=== PATIENT | female | born 1995 | race Caucasian/White ===

== ENCOUNTER → 2016-11-04 | Outpatient (CLI) | payer OTHER ==
[~2016-11-04] MED LIST: ACET118E PO; BENZ100C18 PO; BPR150TCR; CETI10TA17 PO; NF-FLON16G; PRD20T PO; SULF1TAB38 PO
--- OUTSIDE RECORDS SUMMARY | 2016-11-04 11:17 | XMS REPORT | Continuity of Care Document ---
Author Author [facility] Organization [facility] Address Unknown Phone Unavailable Care Team Providers Care Director [employer] Name Role Phone GORDY ABDALLA DO PCP Insurance Providers Payer Name Policy Number Subscriber Name Relationship Unknown JeetAbbiLauro A 18 Self / Same As Patient Advance Directives Directive Response Recorded Date/Time Advance Directives No 10/03/16 5:05pm Organ Donor No 10/03/16 5:05pm Resuscitation Status Full Code 10/03/16 5:05pm Chief Complaint and Reason for Visit Chief Complaint Oral/Throat Problems Reason for Visit Acute viral pharyngitis Problems Active Problems Medical Problem Onset Date Status Acute viral pharyngitis Unknown Acute Medications Current Home Medications Medication Dose Units Route Directions Days/Qty Instructions Start Date Trimethoprim/Sulfamethoxazole 1 Ea 1 Ea Oral Twice A Day 3 Days Prednisone 20 Mg 40 Mg Oral Daily 10 10/03/16 Past Home Medications Medication Directions Ordered Status Bupropion Hcl 150 Mg Tablet, 02/25/09 Discontinued Cetirizine Hcl (Zyrtec) 10 Mg Tablet, 10 Mg Oral Daily 06/26/10 Discontinued Benzonatate 100 Mg Capsule, 200 Mg Oral Three Times A Day 06/26/10 Discontinued Fluticasone Propionate 50 Mcg/16 G [place], 50 Mcg Nasal 06/26/10 Discontinued Acetaminophen With Codeine 120 Ml Elixir, 10 Ml Oral Q4hr Prn 06/26/10 Discontinued Social History Social History Problem Response Recorded Date/Time Alcohol Use Denies Use 04/25/2013 6:21pm Recreational Drug Use Y POT 04/25/2013 6:21pm Recent Foreign Travel No 10/03/2016 5:05pm Recent Infectious Disease Exposure No 10/03/2016 5:05pm Hospitalization with Isolation Denies 10/03/2016 5:05pm Smoking Status Current Everyday Smoker 10/03/2016 5:05pm Recent Hopitalizations No 10/03/2016 5:05pm Hospitalization with Isolation Denies 10/03/2016 5:05pm Query Response Start Date Stop Date Smoking Status Current Everyday Smoker Hospital Discharge Instructions No hospital discharge instructions. Plan of Care Discharge Date 10/03/16 6:10pm Disposition 01 HOME, SELF-CARE Condition at Discharge Improved Instructions/Education Provided Viral Pharyngitis (DC) Prescriptions See Medication Section Referrals GORDY ABDALLA DO - Primary Care Physician Additional Instructions/Education All discharge instructions reviewed with patient and/or family. Voiced understanding. Medications as instructed. Tylenol Extra Strength [id number]-[id number] as directed for pain or fever. Ibuprofen 800 mg by mouth every 8 hours as needed for pain or fever. Push fluids. Cool humidifier if needed. Moit-gss-lepchzz throat lozenges and sprays as needed for pain. Warm salt water gargles as needed. Follow up with family practitioner if no improvement in symptoms. Return to the emergency department for worsened symptoms or any other concerns. Functional Status No functional status results. Allergies, Adverse Reactions, Alerts No known allergies. Immunizations No immunization records. Vital Signs Acute Vital Signs Vital Response Date/Time Temperature (Fahrenheit) 99.9 degrees F (97.6 - 99.5) 10/03/2016 5:05pm Temperature (Calculated Celsius) 37.30698 degrees C (36.4 - 37.5) 10/03/2016 5:05pm Temperature Source Temporal 10/03/2016 5:05pm Pulse Rate (adult) 95 bpm (60 - 90) 10/03/2016 5:05pm Respiratory Rate 20 bpm (12 - 24) 10/03/2016 5:05pm O2 Sat by Pulse Oximetry 98 % (88 - 100) 10/03/2016 5:05pm Blood Pressure 138/76 mm Hg 10/03/2016 5:05pm Blood Pressure Mean 96 mm Hg 10/03/2016 5:05pm Pain Numeric Pain Scale 7 10/03/2016 5:05pm Height (Feet) 5 feet 10/03/2016 5:05pm Height (Inches) 4 inches 10/03/2016 5:05pm Height (Calculated Centimeters) 162.285753 cm 10/03/2016 5:05pm Weight (Pounds) 175 pounds 10/03/2016 5:05pm Weight (Calculated Grams) 99665.710 gm 10/03/2016 5:05pm Weight (Calculated Kilograms) 79.982250 kilograms 10/03/2016 5:05pm Calculated BMI 25.33 10/03/2016 5:05pm Capillary Refill Capillary Refill Less Than 3 Seconds 10/03/2016 5:05pm Results No known relevant diagnostic tests, laboratory data and/or discharge summary. Procedures No known history of procedures. Encounters Encounter Location Arrival/Admit Date Discharge/Depart Date Attending Provider Departed Emergency Room [facility] 10/03/16 4:53pm 10/03 6:10pm [facility] Recent Diagnosis
--- NOTE | 2016-11-04 12:27 | Diagnostic Imaging Report ---
PROCEDURE: US PELVIC (NON OB) TECHNIQUE: Multiple real-time grayscale images were obtained over the pelvis in various projections transabdominally. IMPRESSION: Amenorrhea The uterus measures 7.0 x 3.5 x 2.6 cm. Endometrial stripe is 4 mm. Ovaries appear normal. There is no intraperitoneal free air or free fluid. IMPRESSION: Negative pelvic sonogram. Dictated by: Dictated on workstation # [id number]
== END ==
LOC: RAD 11:14
PROVIDERS: ATTEND Family Medicine
DX: N91.2 Amenorrhea, unspecified (principal)
CPT/HCPCS: 76856

== ENCOUNTER 2017-02-26 22:37 | Emergency (ER) | payer SELFPAY ==
[~2017-02-26] VITALS: Ht 162.6 cm; Wt 86.2 kg
[2017-02-26] MEDS ORDERED: NS IV 1000 ML 1,000 ML IV ONE (23:17)
[2017-02-26] MEDS ORDERED: fentaNYL INJECTION 100 MCG/2 ML AMP IVP STA (23:17)
--- NOTE | 2017-02-26 23:20 | ED Abdominal Pain ---
General Chief Complaint: Abdominal/GI Problems Stated Complaint: ABD PAIN Source of Information: Patient Exam Limitations: No Limitations History of Present Illness Time Seen By Provider: 23:05 Initial Comments Here with report of abdominal pain to the left side that radiates to her back. She states it's lower and then higher and then into her back. She has had intermittently over the past couple of months. 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 She is supposed to take ibuprofen and did take 3 ibuprofen 20 minutes prior to arrival. This has not helped.. Denies nausea, vomiting, diarrhea, blood in her urine or stools. Denies vaginal discharge. Last menstrual period was at the beginning of the month. Timing/Duration: 4-6 Hours Severity/Quality: Moderate, Aching Location: LUQ, LLQ Radiation: Back Activities at Onset: None Modifying Factors: Improves With Resting Associated Symptoms: No Back Pain, No Chest Pain, No Fever/Chills, No Nausea/ Vomiting, No Swelling/Mass in Abdomen, No Weakness Allergies and Home Medications Allergies Coded Allergies: No Known Drug Allergies (Unverified , 02/25/09) Home Medications Prednisone 20 Mg Tab, 40 MG PO DAILY, #10 Ref 0 Prescribed by: RICHARD LANE on 10/03/161800 Trimethoprim/Sulfamethoxazole 1 Ea Tablet, 1 EA PO BID for 3 Days Prescribed by: MARY KATE BETANCOURT on 04/25/132020 Review of Systems Constitutional: see HPI, No chills, No fever EENTM: No Symptoms Reported Respiratory: No Symptoms Reported Cardiovascular: No Symptoms Reported Gastrointestinal: See HPI, Abdominal Pain, Denies Diarrhea, Denies Nausea, Denies Rectal Bleeding, Denies Vomiting Genitourinary: Denies Burning, Denies Discharge, Flank Pain, Denies Hematuria Musculoskeletal: no symptoms reported Skin: no symptoms reported Psychiatric/Neurological: No Symptoms Reported All Other Systems Reviewed Negative Unless Noted: Yes Past Bwkjvom-Gkhddw-Cymjvz Hx Patient Social History Alcohol Use: Occasionally Uses Recreational Drug Use: No Smoking Status: Current Everyday Smoker Type Used: Cigarettes Recent Foreign Travel: No Contact w/Someone Who Travel: No Recent Hopitalizations: No Seasonal Allergies Seasonal Allergies: Yes Surgeries HX Surgeries: No Respiratory Hx Respiratory Disorders: No Cardiovascular Hx Cardiac Disorders: No Neurological Hx Neurological Disorders: No Reproductive System Female Reproductive Disorders: Polycystic Ovarian Dis Genitourinary Hx Genitourinary Disorders: No Gastrointestinal Hx Gastrointestinal Disorders: No Musculoskeletal Hx Musculoskeletal Disorders: No Endocrine Hx Endocrine Disorders: No HEENT HX ENT Disorders: No Cancer Hx Cancer: No Psychosocial Hx Psychiatric Problems: No Integumentary HX Skin/Integumentary Disorder: No Blood Transfusions Hx Blood Disorders: No Reviewed Nursing Assessment Reviewed/Agree w Nursing PMH: Yes Family Medical History Significant Family History: No Pertinent Family Hx Physical Exam Vital Signs VS - Last 72 Hours, by Label 02/26/17 23:04 B/P (MAP) 135/75 Pulse Ox 98 O2 Delivery Room Air Capillary Refill : General Appearance: WD/WN, no apparent distress HEENT: PERRL/EOMI, pharynx normal Neck: full range of motion, supple Respiratory: lungs clear, normal breath sounds Cardiovascular: regular rate, rhythm, no murmur Gastrointestinal: soft, No guarding, No rebound, tenderness (left lower and lateral abdomen) Extremities: non-tender, normal inspection Back: normal inspection, no CVA tenderness, no vertebral tenderness Neurologic/Psychiatric: alert, oriented x 3 Skin: normal color, warm/dry Progress/Results/Core Measures Results/Orders Lab Results Laboratory Tests Test 02/26/17 23:20 02/26/17 23:26 Range/Units Urine Color YELLOW Urine Clarity CLOUDY H Urine pH 6 5-9 Urine Specific Mcdaniel 1.025 H 1.016-1.022 Urine Protein 2+ H NEGATIVE Urine Glucose (UA) 2+ H NEGATIVE Urine Ketones NEGATIVE NEGATIVE Urine Nitrite NEGATIVE NEGATIVE Urine Bilirubin NEGATIVE NEGATIVE Urine Urobilinogen NORMAL NORMAL MG/DL Urine Leukocyte Esterase 1+ H NEGATIVE Urine RBC (Auto) 5+ H NEGATIVE Urine RBC TNTC H /HPF Urine WBC 2-5 /HPF Urine Squamous Epithelial Cells 10-25 H /HPF Urine Crystals NONE /LPF Urine Bacteria MODERATE H /HPF Urine Casts NONE /LPF Urine Mucus NEGATIVE /LPF Urine Culture Indicated YES White Blood Count 11.9 H 4.3-11.0 10^3/uL Red Blood Count 4.86 4.35-5.85 10^6/uL Hemoglobin 14.1 11.5-16.0 G/DL Hematocrit 43 35-52 % Mean Corpuscular Volume 87 80-99 FL Mean Corpuscular Hemoglobin 29 25-34 PG Mean Corpuscular Hemoglobin Concent 33 32-36 G/DL Red Cell Distribution Width 12.5 10.0-14.5 % Platelet Count 334 130-400 10^3/uL Mean Platelet Volume 9.7 7.4-10.4 FL Neutrophils (%) (Auto) 76 H 42-75 % Lymphocytes (%) (Auto) 15 12-44 % Monocytes (%) (Auto) 7 0-12 % Eosinophils (%) (Auto) 2 0-10 % Basophils (%) (Auto) 0 0-10 % Neutrophils # (Auto) 9.0 H 1.8-7.8 X 10^3 Lymphocytes # (Auto) 1.7 1.0-4.0 X 10^3 Monocytes # (Auto) 0.9 0.0-1.0 X 10^3 Eosinophils # (Auto) 0.2 0.0-0.3 10^3/uL Basophils # (Auto) 0.0 0.0-0.1 10^3/uL Sodium Level 140 135-145 MMOL/L Potassium Level 4.2 3.6-5.0 MMOL/L Chloride Level 106 98-107 MMOL/L Carbon Dioxide Level 22 21-32 MMOL/L Anion Gap 12 5-14 MMOL/L Blood Urea Nitrogen 15 7-18 MG/DL Creatinine 0.95 0.60-1.30 MG/DL Estimat Glomerular Filtration Rate > 60 BUN/Creatinine Ratio 16 Glucose Level 131 H 70-105 MG/DL Calcium Level 9.8 8.5-10.1 MG/DL Total Bilirubin 0.2 0.1-1.0 MG/DL Aspartate Amino Transf (AST/SGOT) 20 5-34 U/L Alanine Aminotransferase (ALT/SGPT) 19 0-55 U/L Alkaline Phosphatase 75 40-136 U/L Total Protein 7.1 6.4-8.2 G/DL Albumin 4.1 3.2-4.5 G/DL Amylase Level 49 25-125 U/L Lipase 21 8-78 U/L My Orders Orders - MARY KATE BETANCOURT MD Urine Bedside (02/26/17 23:17) Amylase (02/26/17 23:17) Cbc With Automated Diff (02/26/17 23:17) Comprehensive Metabolic Panel (02/26/17 23:17) Lipase (02/26/17 23:17) Ua Culture If Indicated (02/26/17 23:17) Saline Lock/Iv-Start (02/26/17 23:17) Ns Iv 1000 Ml (Sodium Chloride 0.9%) (02/26/17 23:17) Fentanyl Injection (Sublimaze Injection (02/26/17 23:17) Urine Culture (02/26/17 23:20) Ct Abd/Pelvis Wo(Kidney Stone) (02/27/17 00:01) Levofloxacin Tablet (Levaquin Tablet) (02/27/17 01:33) Rx-Hydrocodone/Apap 5-325 Mg (Rx-Vicodin (02/27/17 01:45) Medications Given in ED Current Medications Medications Dose Ordered Sig/Kimberly Route Start Time Stop Time Status Last Admin Dose Admin Sodium Chloride 1,000 ml @ 0 mls/hr Q0M ONCE IV 02/26/17 23:17 02/26/17 23:19 DC 02/26/17 23:35 0 MLS/HR Vital Signs/I&O Vital Sign - Last 12Hours 02/26/17 23:04 B/P (MAP) 135/75 Pulse Ox 98 O2 Delivery Room Air Progress Note : Progress Note Seen and evaluated. IV, labs, UA, UCG. Normal saline 1 L bolus. Fentanyl 50 g IV. Monitor patient. Pain control. Monitor blood noted in urine. CT abdomen and pelvis kidney stone protocol ordered. 0130: CT shows 6 mm stone at the left distal ureter with mild obstructive changes. Levaquin 500 mg by mouth. Hydrocodone go pack. Pain resolved still. Discharged home with return precautions. Patient verbalize understanding instructions and agreement with plan. Diagnostic Imaging Diagonstic Imaging: Xray Plain Films/CT/US/NM/MRI: abdomen, pelvis Comments 6 mm stone in left distal ureter with mild obstructive changes. Unremarkable appendix. Reviewed: Reviewed [facility] Study, Reviewed by Me Departure Impression Impression: Primary Impression: Kidney stone Additional Impression: Urinary tract infection Qualified Codes: N30.01 - Acute cystitis with hematuria Disposition: HOME, SELF-CARE Condition: Improved Departure-Patient Inst. Decision time for Depature: 01:40 Referrals: CIRA BRANDT DO (PCP) Primary Care Physician JOSE MIKE MD (Family) Primary Care Physician MARIA FERNANDA WHITE MD Patient Instructions: Kidney Stones (DC), Urinary Tract Infection, Adult (DC) Add. Discharge Instructions: All discharge instructions reviewed with patient and/or family. Voiced understanding. Drink plenty of fluids. Take medications as directed. You may take ibuprofen 800 mg every 8 hours as needed for pain as well. Strain urine each time he go to the bathroom. Follow up with your doctor on Wednesday for recheck and further evaluation. Follow-up with urologist in a few days for recheck if not improved. Return for worse pain, fever, vomiting, weakness, difficulty with urination or other concerns as needed. Scripts Hydrocodone/Acetaminophen (Hydrocodon-Acetaminoph 7.5-325) 1 Each Tablet 1 EACH PO Q6H Y for PAIN-MILD TO MODERATE, #14 TAB 0 Refills Prov: MARY KATE BETANCOURT MD 02/27/17 Ciprofloxacin HCl (Ciprofloxacin HCl) 500 Mg Tablet 500 MG PO BID, #14 TAB Prov: MARY KATE BETANCOURT MD 02/27/17 MARY KATE BETANCOURT MD February 26, 2017 23:20
[2017-02-26 23:34] LABS: BASOPHILS % (AUTO) 0 % (0-10); EOSINOPHILS # (AUTO) 0.2 10^3/uL (0.0-0.3); EOSINOPHILS % (AUTO) 2 % (0-10); LYMPHOCYTES # (AUTO) 1.7 X 10^3 (1.0-4.0); LYMPHOCYTES % (AUTO) 15 % (12-44); MEAN CORPUSCULAR HEMOGLOBIN 29 PG (25-34); MEAN CORPUSCULAR HGB CONC 33 G/DL (32-36); MEAN CORPUSCULAR VOLUME 87 FL (80-99); MEAN PLATELET VOLUME 9.7 FL (7.4-10.4); MONOCYTES # (AUTO) 0.9 X 10^3 (0.0-1.0); MONOCYTES % (AUTO) 7 % (0-12); NEUTROPHILS % (AUTO) 76 % (42-75); PLATELET COUNT 334 10^3/uL (130-400); RED BLOOD COUNT 4.86 10^6/uL (4.35-5.85); RED CELL DISTRIBUTION WIDTH 12.5 % (10.0-14.5); WHITE BLOOD COUNT 11.9 10^3/uL (4.3-11.0)
[2017-02-26 23:34] LABS: BILIRUBIN,URINE NEGATIVE (NEGATIVE); KETONES,URINE NEGATIVE (NEGATIVE); LEUKOCYTE ESTERASE ,URINE 1+ (NEGATIVE); NITRITE,URINE NEGATIVE (NEGATIVE); PH,URINE 6 (5-9); PROTEIN,URINE 2+ (NEGATIVE); UROBILINOGEN,URINE NORMAL (NORMAL)
[2017-02-26 23:55] LABS: ALANINE AMINOTRANSFERASE 19 U/L (0-55); ALBUMIN 4.1 G/DL (3.2-4.5); AMYLASE 49 U/L (25-125); ANION GAP 12 MMOL/L (5-14); ASPARTATE AMINO TRANSFERASE 20 U/L (5-34); BILIRUBIN,TOTAL 0.2 MG/DL (0.1-1.0); BLOOD UREA NITROGEN 15 MG/DL (7-18); BUN/CREATININE RATIO 16; CALCIUM 9.8 MG/DL (8.5-10.1); CARBON DIOXIDE 22 MMOL/L (21-32); CHLORIDE 106 MMOL/L (98-107); CREATININE SERUM 0.95 MG/DL (0.60-1.30); GFR ESTIMATED > 60; GLUCOSE 131 MG/DL (70-105); LIPASE 21 U/L (8-78); POTASSIUM 4.2 MMOL/L (3.6-5.0); SODIUM 140 MMOL/L (135-145); TOTAL PROTEIN 7.1 G/DL (6.4-8.2)
[2017-02-27] MEDS ORDERED: LEVOFLOXACIN 500 MG TAB (LEVAQUIN) PO STA (01:33)
[2017-02-27] MEDS ORDERED: CIPR500T4 PO (01:42)
[2017-02-27] MEDS ORDERED: HYDR-3816 PO (01:42)
[2017-02-27 01:43] VITALS: BP 129/70
[2017-02-27] MEDS ORDERED: RX-HYDROCODONE/APAP 5/325 MG #4 TAB PK PO PRN (01:45)
--- NOTE | 2017-02-27 07:16 | Diagnostic Imaging Report ---
PROCEDURE: CT urinary tract, rule out kidney stone. TECHNIQUE: Multiple contiguous axial images were obtained through the abdomen and pelvis without the use of intravenous contrast. INDICATION: Left flank pain COMPARISON: None FINDINGS: There is a 3 mm nodule in the anterior right lower lobe seen on series 2 image 6. Lung bases are otherwise clear. The liver, gallbladder, pancreas, spleen and adrenal glands appear unremarkable. There is a 5 mm stone in the distal left ureter just proximal to the ureterovesical junction with mild hydroureter as well as periureteric stranding. There is mild left hydronephrosis as well. The right kidney and ureter appear unremarkable. The appendix appears normal. The uterus and adnexa appear unremarkable. There is no ascites or adenopathy. The abdominal aorta appears normal in caliber. No osseous abnormality is suspected. IMPRESSION: 1. There is a 5 mm stone in the distal appear with mild obstructive change 2. No additional significant abnormality is demonstrated. Agree with [facility] interpretation Dictated by: Dictated on workstation # [id number]
== END 2017-02-27 01:56 | disposition home or self-care (01) ==
LOC: EDUNIT# 22:37 → ER 22:39
DX: N20.1 Calculus of ureter (principal); F17.210 Nicotine dependence, cigarettes, uncomplicated
CPT/HCPCS: 36415; 74176; 80053; 81000; 82150; 83690; 84703; 85025; 87088; 96361; 96374

== ENCOUNTER 2017-03-03 20:06 | Emergency (ER) | payer SELFPAY ==
[~2017-03-03] VITALS: Ht 162.6 cm; Wt 86.2 kg
[~2017-03-03 20:06] MED LIST changes: +CIPR500T4 PO; +HYDR-3816 PO
[2017-03-03] MEDS ORDERED: KETOROLAC 30 MG/ML VIAL IVP STA (20:49)
[2017-03-03] MEDS ORDERED: LACTATED RINGERS 1,000 ML IV ONE (20:49)
[2017-03-03 20:55] LABS: BASOPHILS % (AUTO) 0 % (0-10); EOSINOPHILS # (AUTO) 0.1 10^3/uL (0.0-0.3); EOSINOPHILS % (AUTO) 1 % (0-10); LYMPHOCYTES # (AUTO) 1.6 X 10^3 (1.0-4.0); LYMPHOCYTES % (AUTO) 14 % (12-44); MEAN CORPUSCULAR HEMOGLOBIN 30 PG (25-34); MEAN CORPUSCULAR HGB CONC 35 G/DL (32-36); MEAN CORPUSCULAR VOLUME 85 FL (80-99); MEAN PLATELET VOLUME 9.8 FL (7.4-10.4); MONOCYTES # (AUTO) 0.7 X 10^3 (0.0-1.0); MONOCYTES % (AUTO) 6 % (0-12); NEUTROPHILS # (AUTO) 9.5 X 10^3 (1.8-7.8); NEUTROPHILS % (AUTO) 79 % (42-75); PLATELET COUNT 387 10^3/uL (130-400); RED BLOOD COUNT 4.97 10^6/uL (4.35-5.85); RED CELL DISTRIBUTION WIDTH 12.3 % (10.0-14.5)
[2017-03-03] MEDS ORDERED: ONDANSETRON 4 MG/2 ML (SDV) Z0FRAN IVP ONE (21:00)
[2017-03-03 21:08] LABS: ALANINE AMINOTRANSFERASE 24 U/L (0-55); ALBUMIN 4.3 G/DL (3.2-4.5); AMYLASE 45 U/L (25-125); ANION GAP 12 MMOL/L (5-14); ASPARTATE AMINO TRANSFERASE 19 U/L (5-34); BILIRUBIN,TOTAL 0.5 MG/DL (0.1-1.0); BLOOD UREA NITROGEN 15 MG/DL (7-18); BUN/CREATININE RATIO 15; CALCIUM 9.6 MG/DL (8.5-10.1); CARBON DIOXIDE 18 MMOL/L (21-32); CHLORIDE 109 MMOL/L (98-107); CREATININE SERUM 0.98 MG/DL (0.60-1.30); GFR ESTIMATED > 60; GLUCOSE 108 MG/DL (70-105); LIPASE 11 U/L (8-78); POTASSIUM 3.9 MMOL/L (3.6-5.0); SODIUM 139 MMOL/L (135-145)
[2017-03-03 21:09] LABS: BILIRUBIN,URINE NEGATIVE (NEGATIVE); KETONES,URINE 2+ (NEGATIVE); LEUKOCYTE ESTERASE ,URINE 1+ (NEGATIVE); NITRITE,URINE NEGATIVE (NEGATIVE); PH,URINE 5 (5-9); PROTEIN,URINE 2+ (NEGATIVE); UROBILINOGEN,URINE 1 MG/DL (NORMAL)
[2017-03-03 21:22] LABS: SQUAMOUS EPITHELIAL CELL,UR 25-50 /HPF
--- NOTE | 2017-03-03 21:22 | Diagnostic Imaging Report ---
Indication: Abdominal pain for 5 days. Discussion: Two views of the abdomen were obtained, comparison with CT from 02/27/2017. A 4 mm distal left ureteral stone appears unchanged in position. No other pathologic calcification identified. No acute osseous abnormality. Normal bowel gas pattern. Impression: 1. A 4 mm distal left ureteral stone appears unchanged in position as compared to prior CT. Dictated by: Dictated on workstation # [id number]
[2017-03-03] MEDS ORDERED: RX-ONDANSETRON 4 MG ODT (ZOFRAN) PPK #4 PO STA (21:52)
[2017-03-03] MEDS ORDERED: AMPI500C9 PO (21:59)
[2017-03-03] MEDS ORDERED: TAMS0.4C98 PO (21:59)
[2017-03-03] MEDS ORDERED: ONDA4TAB8 PO (21:59)
[2017-03-03] MEDS ORDERED: KETO10TA PO (21:59)
--- NOTE | 2017-03-03 21:59 | ED GU-Female ---
General Chief Complaint: -Female Stated Complaint: KIDNEY STONE Nursing Triage Note: pt reports she was diagnosed with a 6mm kidney stone on Wednesday. She has been taking hydrocodone et antibiotic. pain worsened at about 1645 today. pt reports she vomited her hydrocodone. Nursing Sepsis Screen: No Definite Risk Source: patient, old records History of Present Illness Time seen by provider: 20:30 Initial Comments C/O SEVERE LEFT FLANK AND LLQ PAIN SINCE WAKING AT 0500 THIS AM PAIN IS CONSTANT NOTHING WORSENS OR IMPROVES PAIN PT HAS BEEN HAVING INTERMITTENT MILD PAIN IN THIS AREA FOR THE LAST MONTH, ALONG WITH INTERMITTENT HEMATURIA DID NOT SEEK CARE UNTIL 01/27/17 WHEN PAIN BECAME SEVERE--SEEN HERE IN ER AND DX WITH 5 MM LEFT URETERAL STONE WITH MILD HYDRONEPHROSIS. ALSO DX WITH UTI-- STATES PAIN WAS BETTER UNTIL THIS AM. HAS HAD MILD PAIN OFF AND ON, ONLY LASTING A COUPLE OF MINUTES AT A TIME, AND HAS NOT NEEDED TO TAKE ANY PAIN MEDICATION UNTIL TODAY PT WAS GIVEN RX FOR CIPRO AND HYDROCODONE PT TOOK 1 HYDROCODONE AT 0500 THIS AM, AND HAS NOT TAKEN ANYTHING ELSE FOR PAIN TODAY C/O NAUSEA, VOMITED X 1 NO DIARRHEA NO DIFFICULTY URINATING NO FEVER NO PRIOR HISTORY OF SIMILAR LMP 02/08/17. NORMAL. NO CONTROL PCP: [facility] Allergies and Home Medications Allergies Coded Allergies: No Known Drug Allergies (Unverified , 02/25/09) Home Medications Ampicillin Trihydrate 500 Mg Capsule, 500 MG PO TID, #30 FOR INFECTION Prescribed by: KAYLEN BASURTO on 03/03/172158 Ciprofloxacin HCl 500 Mg Tablet, 500 MG PO BID, #14 Prescribed by: MARY KATE BETANCOURT on 02/27/17 0142 Hydrocodone/Acetaminophen 1 Each Tablet, 1 EACH PO Q6H PRN for PAIN-MILD TO MODERATE, #14 Ref 0 Prescribed by: MARY KATE BETANCOURT on 02/27/17 0142 Ketorolac Tromethamine 10 Mg Tablet, 10 MG PO Q6H, #15 Prescribed by: KAYLEN BASURTO on 03/03/172158 Ondansetron 4 Mg Tab.rapdis, 4 MG PO Q4H, #10 Prescribed by: KAYLEN BASURTO on 03/03/172158 Tamsulosin HCl 0.4 Mg Cap, 0.4 MG PO DAILY, #10 Prescribed by: KAYLEN BASURTO on 03/03/17 9729 Constitutional: no symptoms reported Respiratory: no symptoms reported Cardiovascular: no symptoms reported Gastrointestinal: LLQ, see HPI, abdominal pain, nausea, vomiting Genitourinary: see HPI, flank pain, hematuria : No LMP: February 08, 2017 Musculoskeletal: see HPI, back pain Skin: no symptoms reported Psychiatric/Neurological: No Symptoms Reported Endocrine: No Symptoms Reported Hematologic/Lymphatic: No Symptoms Reported Past Oenojhl-Hvbsko-Rfdryi Hx Patient Social History Alcohol Use: Rarely Uses Recreational Drug Use: No Smoking Status: Current Everyday Smoker (1 PPD) Type Used: Cigarettes Recent Foreign Travel: No Contact w/Someone Who Travel: No Recent Infectious Disease Expo: No Recent Hopitalizations: No Seasonal Allergies Seasonal Allergies: Yes Surgeries HX Surgeries: No Respiratory Hx Respiratory Disorders: No Cardiovascular Hx Cardiac Disorders: No Neurological Hx Neurological Disorders: No Reproductive System : No Female Reproductive Disorders: Polycystic Ovarian Dis Genitourinary Hx Genitourinary Disorders: Yes Genitourinary Disorders: Kidney Stones Gastrointestinal Hx Gastrointestinal Disorders: No Musculoskeletal Hx Musculoskeletal Disorders: No Endocrine Hx Endocrine Disorders: No HEENT HX ENT Disorders: No Cancer Hx Cancer: No Psychosocial Hx Psychiatric Problems: No Integumentary HX Skin/Integumentary Disorder: No Blood Transfusions Hx Blood Disorders: No Physical Exam Vital Signs Vital Sign - Last 12Hours 03/03/17 03/03/17 20:10 22:04 Temp 97.1 Pulse 76 Resp 20 B/P (MAP) 120/83 Pulse Ox 99 Capillary Refill : Less Than 3 Seconds General Appearance: WD/WN, other (LOOKS UNCOMFORTABLE, DIAPHORETIC. ) HEENT: PERRL/EOMI Neck: normal inspection Cardiovascular: regular rate, rhythm, no murmur Respiratory: normal breath sounds, no respiratory distress, no accessory muscle use Gastrointestinal: normal bowel sounds, non tender, soft, no organomegaly Back: normal inspection, no CVA tenderness, no vertebral tenderness Extremities: normal inspection Neurologic/Psychiatric: therapeutic specialist II-XII nml as tested, no motor/sensory deficits, alert, oriented x 3 Skin: normal color, diaphoresis Progress/Results/Core Measures Results/Orders Lab Results Laboratory Tests Test 03/03/17 20:15 03/03/17 20:28 Range/Units Urine Color YELLOW Urine Clarity VERY CLOUDY H Urine pH 5 5-9 Urine Specific [place] 1.025 H 1.016-1.022 Urine Protein 2+ H NEGATIVE Urine Glucose (UA) NEGATIVE NEGATIVE Urine Ketones 2+ H NEGATIVE Urine Nitrite NEGATIVE NEGATIVE Urine Bilirubin NEGATIVE NEGATIVE Urine Urobilinogen 1 NORMAL MG/DL Urine Leukocyte Esterase 1+ H NEGATIVE Urine RBC (Auto) 5+ H NEGATIVE Urine RBC 25-50 H /HPF Urine WBC 5-10 H /HPF Urine Squamous Epithelial Cells 25-50 H /HPF Urine Crystals NONE /LPF Urine Bacteria LARGE H /HPF Urine Casts NONE /LPF Urine Mucus LARGE H /LPF Urine Culture Indicated YES White Blood Count 12.0 H 4.3-11.0 10^3/uL Red Blood Count 4.97 4.35-5.85 10^6/uL Hemoglobin 14.8 11.5-16.0 G/DL Hematocrit 42 35-52 % Mean Corpuscular Volume 85 80-99 FL Mean Corpuscular Hemoglobin 30 25-34 PG Mean Corpuscular Hemoglobin Concent 35 32-36 G/DL Red Cell Distribution Width 12.3 10.0-14.5 % Platelet Count 387 130-400 10^3/uL Mean Platelet Volume 9.8 7.4-10.4 FL Neutrophils (%) (Auto) 79 H 42-75 % Lymphocytes (%) (Auto) 14 12-44 % Monocytes (%) (Auto) 6 0-12 % Eosinophils (%) (Auto) 1 0-10 % Basophils (%) (Auto) 0 0-10 % Neutrophils # (Auto) 9.5 H 1.8-7.8 X 10^3 Lymphocytes # (Auto) 1.6 1.0-4.0 X 10^3 Monocytes # (Auto) 0.7 0.0-1.0 X 10^3 Eosinophils # (Auto) 0.1 0.0-0.3 10^3/uL Basophils # (Auto) 0.0 0.0-0.1 10^3/uL Sodium Level 139 135-145 MMOL/L Potassium Level 3.9 3.6-5.0 MMOL/L Chloride Level 109 H 98-107 MMOL/L Carbon Dioxide Level 18 L 21-32 MMOL/L Anion Gap 12 5-14 MMOL/L Blood Urea Nitrogen 15 7-18 MG/DL Creatinine 0.98 0.60-1.30 MG/DL Estimat Glomerular Filtration Rate > 60 BUN/Creatinine Ratio 15 Glucose Level 108 H 70-105 MG/DL Calcium Level 9.6 8.5-10.1 MG/DL Total Bilirubin 0.5 0.1-1.0 MG/DL Aspartate Amino Transf (AST/SGOT) 19 5-34 U/L Alanine Aminotransferase (ALT/SGPT) 24 0-55 U/L Alkaline Phosphatase 70 40-136 U/L Total Protein 7.0 6.4-8.2 G/DL Albumin 4.3 3.2-4.5 G/DL Amylase Level 45 25-125 U/L Lipase 11 8-78 U/L Serum Test, Qualitative NEGATIVE NEGATIVE My Orders Orders - KAYLEN BASURTO DO Amylase (03/03/17 20:49) Cbc With Automated Diff (03/03/17 20:49) Comprehensive Metabolic Panel (03/03/17 20:49) Lipase (03/03/17 20:49) Ua Culture If Indicated (03/03/17 20:49) Hcg,Qualitative Serum (03/03/17 20:49) Saline Lock/Iv-Start (03/03/17 20:49) Lactated Ringers (Lr 1000 Ml Iv Solution (03/03/17 20:49) Ondansetron Injection (Zofran Injectio (03/03/17 21:00) Ketorolac Injection (Toradol Injection) (03/03/17 20:49) Abdomen/Kub 1view (03/03/17 20:49) Urine Culture (03/03/17 20:15) Alfuzosin Tablet (Uroxatral Tablet) (03/03/17 22:00) Rx-Ondansetron Po (Rx-Zofran Po) (03/03/17 21:52) Medications Given in ED Current Medications Medications Dose Ordered Sig/Kimberly Route Start Time Stop Time Status Last Admin Dose Admin Lactated Ringer's 1,000 ml @ 0 mls/hr Q0M ONCE IV 03/03/17 20:49 03/03/17 20:52 DC 03/03/17 20:58 1,000 MLS/HR Ondansetron HCl 4 mg ONCE ONCE IVP 03/03/17 21:00 03/03/17 21:01 DC 03/03/17 20:58 4 MG Vital Signs/I&O Vital Sign - Last 12Hours 03/03/17 03/03/17 20:10 22:04 Temp 97.1 Pulse 76 68 Resp 20 18 B/P (MAP) 120/83 Pulse Ox 99 Blood Pressure Mean: 95 Progress Note : Progress Note PAIN FREE WITH TORADOL--FEELS AND LOOKS MUCH BETTER . NO LONGER DIAPHORETIC AND RESTING COMFORTABLY REVIEWED URINE CULTURE--GREW OUT LACTOBACILLUS AND MIXED GRAM + ELINOR, WILL CHANGE ANTIBIOTICS Diagnostic Imaging Comments KUB--4 MM STONE LEFT MID URETER, ESSENTIALLY UNCHANGED FROM PREVIOUS--PER RADIOLOGIST REPORT @ 2134 Reviewed: Reviewed by Me Departure Communication Progress Notes 2141--SPOKE WITH DR. WHITE. HE IS LEAVING TOWN TOMORROW AND WILL BE BACK IN OFFICE ON WEDNESDAY, AND PT CAN FOLLOW UP WITH HIM THEN Impression Impression: Primary Impression: Left ureteral calculus Additional Impression: Urinary tract infection Disposition: HOME, SELF-CARE Condition: Improved Departure-Patient Inst. Referrals: CIRA BRANDT DO (PCP) Primary Care Physician JOSE MIKE MD (Family) Primary Care Physician MARIA FERNANDA WHITE MD Patient Instructions: Kidney Stones (DC), Urinary Tract Infection, Adult (DC) Add. Discharge Instructions: STRAIN ALL URINE--RETURN ANY STONES TO DR'S OFFICE YOU MAY TAKE HYDROCODONE 1-2 PILLS EVERY 4 HOURS NEEDED FOR PAIN INCREASE YOUR CLEAR LIQUID INTAKE STOP CIPRO FOLLOW UP WITH DR. WHITE ON WEDNESDAY FOLLOW UP WITH [facility] OR RETURN TO ER IF SYMPTOMS WORSEN All discharge instructions reviewed with patient and/or family. Voiced understanding. Scripts Ketorolac Tromethamine (Ketorolac Tromethamine) 10 Mg Tablet 10 MG PO Q6H for Pain, #15 TAB Prov: KAYLEN BASURTO DO 03/03/17 Ampicillin Trihydrate (Ampicillin Trihydrate) 500 Mg Capsule 500 MG PO TID, #30 CAP FOR INFECTION Prov: KAYLEN BASURTO DO 03/03/17 Ondansetron (Zofran Odt) 4 Mg Tab.rapdis 4 MG PO Q4H for Nausea/Vomiting, #10 TAB Prov: KAYLEN BASURTO DO 03/03/17 Tamsulosin HCl (Flomax) 0.4 Mg Cap 0.4 MG PO DAILY, #10 CAP Prov: KAYLEN BASURTO DO 03/03/17 KAYLEN BASURTO DO March 03, 2017 21:59
[2017-03-03] MEDS ORDERED: ALFUZOSIN HCL 10 MG TAB (UROXATRAL) PO SCH (22:00)
[2017-03-03 22:04] VITALS: BP 118/80
== END 2017-03-03 22:04 | disposition home or self-care (01) ==
LOC: EDUNIT# 20:06 → ER 20:08
DX: N20.1 Calculus of ureter (principal); N30.91 Cystitis, unspecified with hematuria; F17.210 Nicotine dependence, cigarettes, uncomplicated
CPT/HCPCS: 36415; 74000; 80053; 81000; 82150; 83690; 84703; 85025; 87088

== ENCOUNTER 2017-03-13 02:48 | Emergency (ER) | payer SELFPAY ==
[~2017-03-13] VITALS: Ht 162.6 cm; Wt 86.2 kg
[~2017-03-13 02:48] MED LIST changes: +AMPI500C9 PO; +KETO10TA PO; +ONDA4TAB8 PO; +TAMS0.4C98 PO
[2017-03-13 03:15] LABS: BILIRUBIN,URINE NEGATIVE (NEGATIVE); KETONES,URINE 1+ (NEGATIVE); LEUKOCYTE ESTERASE ,URINE 3+ (NEGATIVE); NITRITE,URINE NEGATIVE (NEGATIVE); PH,URINE 7 (5-9); PROTEIN,URINE 2+ (NEGATIVE); UROBILINOGEN,URINE 4 MG/DL (NORMAL)
--- NOTE | 2017-03-13 03:16 | ED GU-Female ---
General Chief Complaint: -Female Stated Complaint: BLADDER & BACK PAIN Nursing Triage Note: PT TO ED 7 W/ C/O BLADDER PRESSURE. PT SEEN IN THIS ED MULTIPLE TIMES OVER THE PAST 2-3WKS FOR SAME C/O. REPORTS SHE WAS "DOING BETTER" UNTIL THIS AM Nursing Sepsis Screen: No Definite Risk Source: patient, family (Mother), RN notes reviewed Exam Limitations: no limitations History of Present Illness Time seen by provider: 03:07 Initial Comments Patient represents for the 3rd time c/ c/o bladder pressure, and difficulty urinating. Really not having pain per se. Initially seen on 02/26 and dx c/ a left sided lower ureterolithiasis and UTI. Rx'd an abx and pain meds and referred to Dr. White. Returned on 03/03 c/ similar complaints. KUB revealed continued left ureterolithiasis and UTI. Given another abx and pain meds and again referred to Dr. White. When questioned about following up c/ , patient states she didn't try to follow up c/ him because she doesn't have insurance and can't afford to see him, although she has no idea of what an office visit costs, especially in comparison to continued ED use. Also admitted to me not always being compliant c/ her medications. Timing/Duration: week, intermittent Severity/Quality: other (see above) Location: suprapubic Radiation: none Activities at Onset: none Prior Genitourinary Problems: similar symptoms Modifying Factors: Improves With Other (currently nothing helps, or makes her symptoms worse) Associated Symptoms: denies symptoms Allergies and Home Medications Allergies Coded Allergies: No Known Drug Allergies (Unverified , 02/25/09) Home Medications Ampicillin Trihydrate 500 Mg Capsule, 500 MG PO TID, #30 FOR INFECTION Prescribed by: KAYLEN BASURTO on 03/03/179 Cephalexin 500 Mg Capsule, 500 MG PO TID, #30 Ref 0 Prescribed by: JOSE SHAH on 03/13/17 0354 Ciprofloxacin HCl 500 Mg Tablet, 500 MG PO BID, #14 Prescribed by: MARY KATE BETANCOURT on 02/27/17 0142 Diclofenac Sodium 50 Mg Tablet.dr, 50 MG PO Q6H PRN for pain, #30 Ref 0 Prescribed by: JOSE SHAH on 03/13/17 0354 Hydrocodone/Acetaminophen 1 Each Tablet, 1 EACH PO Q6H PRN for PAIN-MILD TO MODERATE, #14 Ref 0 Prescribed by: MARY KATE BETANCOURT on 02/27/17 0142 Ketorolac Tromethamine 10 Mg Tablet, 10 MG PO Q6H, #15 Prescribed by: KAYLEN BASURTO on 03/03/172158 Ondansetron 4 Mg Tab.rapdis, 4 MG PO Q4H, #10 Prescribed by: KAYLEN BASURTO on 03/03/172158 Tamsulosin HCl 0.4 Mg Cap, 0.4 MG PO DAILY, #10 Prescribed by: KAYLEN BASURTO on 03/03/172158 Constitutional: see HPI Genitourinary: see HPI, other (bladder pressure and difficulty urinating) : No All Other Systemes Reviewed Negative Unless Noted: Yes (Negative excepted noted.) Past Ibabgtq-Yecbde-Vxtdyc Hx Patient Social History Alcohol Use: Occasionally Uses Recreational Drug Use: No Smoking Status: Current Everyday Smoker Type Used: Cigarettes Recent Foreign Travel: No Contact w/Someone Who Travel: No Recent Infectious Disease Expo: No Recent Hopitalizations: No Seasonal Allergies Seasonal Allergies: Yes Surgeries HX Surgeries: No Respiratory Hx Respiratory Disorders: No Cardiovascular Hx Cardiac Disorders: No Neurological Hx Neurological Disorders: No Reproductive System Female Reproductive Disorders: Polycystic Ovarian Dis Genitourinary Hx Genitourinary Disorders: Yes Genitourinary Disorders: Kidney Stones Gastrointestinal Hx Gastrointestinal Disorders: No Musculoskeletal Hx Musculoskeletal Disorders: No Endocrine Hx Endocrine Disorders: No HEENT HX ENT Disorders: No Cancer Hx Cancer: No Psychosocial Hx Psychiatric Problems: No Integumentary HX Skin/Integumentary Disorder: No Blood Transfusions Hx Blood Disorders: No Physical Exam Vital Signs Vital Sign - Last 12Hours 03/13/17 02:53 Temp 97.3 Pulse 84 Resp 20 B/P (MAP) 127/75 Pulse Ox 98 O2 Delivery Room Air Capillary Refill : Less Than 3 Seconds General Appearance: WD/WN, no apparent distress, obese Cardiovascular: regular rate, rhythm Respiratory: no respiratory distress Gastrointestinal: tenderness (suprapubically), other (obese) Rectal: deferred Neurologic/Psychiatric: no motor/sensory deficits, alert, oriented x 3 Skin: warm/dry Progress/Results/Core Measures Results/Orders Lab Results Laboratory Tests Test 03/13/17 02:55 Range/Units Urine Color YELLOW Urine Clarity VERY CLOUDY H Urine pH 7 5-9 Urine Specific [place] 1.010 L 1.016-1.022 Urine Protein 2+ H NEGATIVE Urine Glucose (UA) NEGATIVE NEGATIVE Urine Ketones 1+ H NEGATIVE Urine Nitrite NEGATIVE NEGATIVE Urine Bilirubin NEGATIVE NEGATIVE Urine Urobilinogen 4 H NORMAL MG/DL Urine Leukocyte Esterase 3+ H NEGATIVE Urine RBC (Auto) 2+ H NEGATIVE Urine RBC 2-5 H /HPF Urine WBC 5-10 H /HPF Urine Squamous Epithelial Cells 5-10 /HPF Urine Crystals NONE /LPF Urine Bacteria LARGE H /HPF Urine Casts NONE /LPF Urine Mucus NEGATIVE /LPF Urine Culture Indicated YES My Orders Orders - JOSE SHAH DO Ua Culture If Indicated (03/13/17 03:09) Abdomen/Kub 1view (03/13/17 03:15) Urine Culture (03/13/17 02:55) Ketorolac Injection (Toradol Injection) (03/13/17 04:00) Cephalexin Capsule (Keflex Capsule) (03/13/17 04:00) Vital Signs/I&O Blood Pressure Mean: 92 Diagnostic Imaging Diagonstic Imaging: Xray Plain Films/CT/US/NM/MRI: abdomen (left sided stone appears to be in same location) Reviewed: Reviewed by Me Departure Impression Impression: Primary Impression: Left UVJ stone Additional Impressions: UTI (urinary tract infection) Non-compliance with treatment Disposition: 01 HOME, SELF-CARE Condition: Stable Departure-Patient Inst. Decision time for Depature: 03:52 Referrals: MARIA FERNANDA WHITE MD Patient Instructions: Kidney Stones in Adults, Urinary Tract Infection, Adult ( DC) Scripts Diclofenac Sodium (Diclofenac Sodium) 50 Mg Tablet.dr 50 MG PO Q6H Y for pain, #30 TAB 0 Refills Prov: JOSE SHAH DO 03/13/17 Cephalexin (Keflex) 500 Mg Capsule 500 MG PO TID for UTI, #30 CAP 0 Refills Prov: JOSE SHAH DO 03/13/17 JOSE SHAH DO Mar 13, 2017 03:16
[2017-03-13] MEDS ORDERED: DICL50TA6 PO (03:54)
[2017-03-13] MEDS ORDERED: CEPH-507 PO (03:54)
[2017-03-13] MEDS ORDERED: CEPHALEXIN 250 MG (KEFLEX) CAP PO ONE (04:00)
[2017-03-13] MEDS ORDERED: KETOROLAC 60 MG/2 ML VIAL IM ONE (04:00)
[2017-03-13 04:13] VITALS: BP 0/0
--- NOTE | 2017-03-13 07:16 | Diagnostic Imaging Report ---
EXAMINATION: Two AP views of the abdomen. INDICATION: Bladder pressure and pain. FINDINGS: There is moderate stool within the colon. There is no evidence of bowel dilatation to suggest obstruction. There is a small calcification demonstrated within the left hemipelvis. This is unchanged from prior examination and when correlated with a CT study from February 27, 2017, appears to be reflective of a distal left ureteral stone. No new calcifications are evident. IMPRESSION: 1. Unchanged location of a distal left ureteral stone. 2. No evidence of bowel obstruction. There is moderate stool within the colon. Dictated by: Dictated on workstation # [id number]
== END 2017-03-13 04:13 | disposition home or self-care (01) ==
LOC: EDUNIT# 02:48 → ER 02:50
DX: N20.1 Calculus of ureter (principal); N39.0 Urinary tract infection, site not specified; F17.210 Nicotine dependence, cigarettes, uncomplicated; Z91.19 Patient's noncompliance with other medical treatment and regimen
CPT/HCPCS: 74000; 81000; 87088; 96372; 99282

== ENCOUNTER 2017-03-21 06:09 | Emergency (ER) | payer SELFPAY ==
[~2017-03-21] VITALS: Ht 162.6 cm; Wt 86.2 kg
[~2017-03-21 06:09] MED LIST changes: +CEPH-507 PO; +DICL50TA6 PO
[2017-03-21] MEDS ORDERED: fentaNYL INJECTION 100 MCG/2 ML AMP IVP STA (06:31)
[2017-03-21] MEDS ORDERED: NS IV 1000 ML 1,000 ML IV ONE (06:31)
--- NOTE | 2017-03-21 06:31 | ED GU-Female ---
General Chief Complaint: General Problems/Pain Stated Complaint: BACK, BLADDER PAIN AND VOMITING Nursing Triage Note: pt ambulated to room. pt states she has been in constant pain all night last night. pt states her pain is mostly in her back. Nursing Sepsis Screen: No Definite Risk Source: patient History of Present Illness Time seen by provider: 06:27 Initial Comments Patient brought herself to the ER because of the superior pubic pain and dysuria. The pain radiates to her left flank. She was told over a month ago the she had a kidney stone but she was unable to afford to go to a urologist so she tried to pass it on her own. A week ago she says she came to the ER and was told the stone was in her bladder but she was unable to pass it on her own. She was given [place] which she says does not really help the pain much. She had some nausea and vomiting earlier this morning. Allergies and Home Medications Allergies Coded Allergies: No Known Drug Allergies (Unverified , 02/25/09) Home Medications Ampicillin Trihydrate 500 Mg Capsule, 500 MG PO TID, #30 FOR INFECTION Prescribed by: KAYLEN BASURTO on 03/03/172158 Cephalexin 500 Mg Capsule, 500 MG PO TID, #30 Ref 0 Prescribed by: JOSE SHAH on 03/13/17353 Ciprofloxacin HCl 500 Mg Tablet, 500 MG PO BID, #14 Prescribed by: MARY KATE BETANCOURT on 02/27/17141 Diclofenac Sodium 50 Mg Tablet.dr, 50 MG PO Q6H PRN for pain, #30 Ref 0 Prescribed by: JOSE SHAH on 03/13/17353 Hydrocodone/Acetaminophen 1 Each Tablet, 1 EACH PO Q6H PRN for PAIN-MILD TO MODERATE, #14 Ref 0 Prescribed by: MARY KATE BETANCOURT on 02/27/17 014 Ketorolac Tromethamine 10 Mg Tablet, 10 MG PO Q6H, #15 Prescribed by: KAYLEN BASURTO on 03/03/172158 Ondansetron 4 Mg Tab.rapdis, 4 MG PO Q4H, #10 Prescribed by: KAYLEN BASURTO on 03/03/172158 Tamsulosin HCl 0.4 Mg Cap, 0.4 MG PO DAILY, #10 Prescribed by: KAYLEN BASURTO on 03/03/172158 Constitutional: see HPI, No chills, No diaphoresis, No fever, No malaise, No weakness Respiratory: No short of breath, No wheezing Cardiovascular: No palpitations, No syncope Gastrointestinal: see HPI, abdominal pain (suprapubic), No constipation, No diarrhea, nausea, vomiting, other (BM this morning performed) Genitourinary: denies discharge, dysuria, denies frequency, denies incontinence Musculoskeletal: No back pain, No joint pain Skin: No rash Past Dfzslbn-Ezqwgb-Uusekf Hx Patient Social History Alcohol Use: Denies Use Recreational Drug Use: No Smoking Status: Current Everyday Smoker Type Used: Cigarettes 2nd Hand Smoke Exposure: Yes Recent Foreign Travel: No Contact w/Someone Who Travel: No Recent Infectious Disease Expo: No Recent Hopitalizations: No Immunizations Up To Date PED Vaccines UTD: No Seasonal Allergies Seasonal Allergies: Yes Surgeries HX Surgeries: No Respiratory Hx Respiratory Disorders: No Cardiovascular Hx Cardiac Disorders: No Neurological Hx Neurological Disorders: No Reproductive System Female Reproductive Disorders: Polycystic Ovarian Dis Genitourinary Hx Genitourinary Disorders: Yes Genitourinary Disorders: Kidney Stones Gastrointestinal Hx Gastrointestinal Disorders: No Musculoskeletal Hx Musculoskeletal Disorders: No Endocrine Hx Endocrine Disorders: No HEENT HX ENT Disorders: No Cancer Hx Cancer: No Psychosocial Hx Psychiatric Problems: No Integumentary HX Skin/Integumentary Disorder: No Blood Transfusions Hx Blood Disorders: No Physical Exam Vital Signs Vital Sign - Last 12Hours 03/21/17 06:19 Temp 97.4 Pulse 95 Resp 18 B/P (MAP) 125/85 Pulse Ox 97 O2 Delivery Room Air Capillary Refill : Less Than 3 Seconds General Appearance: WD/WN, mild distress HEENT: PERRL/EOMI, pharynx normal Neck: full range of motion, normal inspection Cardiovascular: normal peripheral pulses, regular rate, rhythm Respiratory: lungs clear, normal breath sounds Gastrointestinal: normal bowel sounds, non tender, soft Back: normal inspection, no CVA tenderness Extremities: normal inspection, no pedal edema Neurologic/Psychiatric: alert, oriented x 3 Skin: normal color, warm/dry Focused Exam Lactic Acid Level Laboratory Tests Test 03/21/17 07:38 Lactic Acid Level 1.81 MMOL/L (0.50-2.00) Progress/Results/Core Measures Results/Orders Lab Results Laboratory Tests Test 03/21/17 06:41 03/21/17 07:30 03/21/17 07:38 Range/Units White Blood Count 15.9 H 4.3-11.0 10^3/uL Red Blood Count 4.78 4.35-5.85 10^6/uL Hemoglobin 14.1 11.5-16.0 G/DL Hematocrit 42 35-52 % Mean Corpuscular Volume 87 80-99 FL Mean Corpuscular Hemoglobin 30 25-34 PG Mean Corpuscular Hemoglobin Concent 34 32-36 G/DL Red Cell Distribution Width 12.3 10.0-14.5 % Platelet Count 351 130-400 10^3/uL Mean Platelet Volume 9.4 7.4-10.4 FL Neutrophils (%) (Auto) 75 42-75 % Lymphocytes (%) (Auto) 15 12-44 % Monocytes (%) (Auto) 8 0-12 % Eosinophils (%) (Auto) 1 0-10 % Basophils (%) (Auto) 0 0-10 % Neutrophils # (Auto) 12.0 H 1.8-7.8 X 10^3 Lymphocytes # (Auto) 2.4 1.0-4.0 X 10^3 Monocytes # (Auto) 1.2 H 0.0-1.0 X 10^3 Eosinophils # (Auto) 0.2 0.0-0.3 10^3/uL Basophils # (Auto) 0.1 0.0-0.1 10^3/uL Neutrophils % (Manual) 66 % Lymphocytes % (Manual) 25 % Monocytes % (Manual) 7 % Eosinophils % (Manual) 1 % Metamyelocytes % 1 % Platelet Estimate ADEQ. Blood Morphology Comment NORMAL Sodium Level 140 135-145 MMOL/L Potassium Level 3.4 L 3.6-5.0 MMOL/L Chloride Level 105 98-107 MMOL/L Carbon Dioxide Level 22 21-32 MMOL/L Anion Gap 13 5-14 MMOL/L Blood Urea Nitrogen 17 7-18 MG/DL Creatinine 1.12 0.60-1.30 MG/DL Estimat Glomerular Filtration Rate > 60 BUN/Creatinine Ratio 15 Glucose Level 122 H 70-105 MG/DL Calcium Level 9.7 8.5-10.1 MG/DL Urine Color YELLOW Urine Clarity CLEAR Urine pH 6 5-9 Urine Specific [place] 1.020 1.016-1.022 Urine Protein 2+ H NEGATIVE Urine Glucose (UA) NEGATIVE NEGATIVE Urine Ketones 1+ H NEGATIVE Urine Nitrite NEGATIVE NEGATIVE Urine Bilirubin NEGATIVE NEGATIVE Urine Urobilinogen 1 NORMAL MG/DL Urine Leukocyte Esterase 2+ H NEGATIVE Urine RBC (Auto) 4+ H NEGATIVE Urine RBC 25-50 H /HPF Urine WBC 25-50 H /HPF Urine Squamous Epithelial Cells 2-5 /HPF Urine Crystals NONE /LPF Urine Bacteria FEW H /HPF Urine Casts NONE /LPF Urine Mucus MODERATE H /LPF Urine Culture Indicated YES Urine Test NEGATIVE NEGATIVE Lactic Acid Level 1.81 0.50-2.00 MMOL/L My Orders Orders - KEN ZUNIGA Basic Metabolic Panel (03/21/17 06:31) Cbc With Automated Diff (03/21/17 06:31) Hcg,Qualitative Urine (03/21/17 06:31) Ua Culture If Indicated (03/21/17 06:31) Fentanyl Injection (Sublimaze Injection (03/21/17 06:31) Saline Lock/Iv-Start (03/21/17 06:31) Ns Iv 1000 Ml (Sodium Chloride 0.9%) (03/21/17 06:31) Ondansetron Injection (Zofran Injectio (03/21/17 06:45) Abdomen/Kub 1view (03/21/17 06:33) Manual Differential (03/21/17 06:41) Lactic Acid Analyzer (03/21/17 07:28) Urine Culture (03/21/17 07:30) Medications Given in ED Current Medications Medications Dose Ordered Sig/Kimberly Route Start Time Stop Time Status Last Admin Dose Admin Ondansetron HCl 4 mg ONCE ONCE IVP 03/21/17 06:45 03/21/17 06:46 DC 03/21/17 06:52 4 MG Sodium Chloride 1,000 ml @ 0 mls/hr Q0M ONCE IV 03/21/17 06:31 03/21/17 06:34 DC 03/21/17 06:54 1,000 MLS/HR Vital Signs/I&O Vital Sign - Last 12Hours 03/21/17 06:19 Temp 97.4 Pulse 95 Resp 18 B/P (MAP) 125/85 Pulse Ox 97 O2 Delivery Room Air Blood Pressure Mean: 98 Progress Note : Time: 06:36 Progress Note Reviewed x-ray from 03/13/17 showing a left distal ureter stone. We will hydrate her treat her symptoms and obtain labs to see if she is having any evidence of infection. She may respond Flomax. Previous cultures vaginal riya. First Dx'ed 02/26/17. This is beyond the 22 day average for a 4-6 mm stone. She is not septic however her UA and marginal leukocytosis indicate need for further antibiotic treatment. Diagnostic Imaging Diagonstic Imaging: Xray Plain Films/CT/US/NM/MRI: abdomen (KUB upright) Comments Small stone in similar location left distal ureter as last x-ray was dated . Nonspecific bowel gas pattern. No other acute abnormality is noted. Reviewed: Reviewed by Me Consults Consults : Consulting Physician: MARIA FERNANDA WHITE MD Consults Notes Recommends she continues the tamsulosin. She did treat her UTI with antibiotics and ask her to follow up with a urologist. He will be out of town this week and not be back to the following week. If she needs see a urologist for then he would recommend going over to [place] if she needs to be seen in the ER urgently he would recommend going somewhere that has urology coverage for the next week. She should drink copious amounts of fluids especially with caffeine in them. He recommends Lorcet 10 mg one to 2 tablets every 6 hours as needed. She is welcome to see him in clinic when he is available. Departure Impression Impression: Primary Impression: Urinary tract infection Qualified Codes: N30.01 - Acute cystitis with hematuria Additional Impression: Ureterolithiasis Disposition: HOME, SELF-CARE Condition: Improved Departure-Patient Inst. Decision time for Depature: 08:49 Referrals: [facility] (PCP) Primary Care Physician Patient Instructions: Kidney Stones (DC) Add. Discharge Instructions: You have a stone in the tube connecting her kidney to her bladder in the same place it was last week. The stone is going to be difficult to pass due to its size being approximately 5 mm. You will need to drink a lot of fluids especially fluids with caffeine in them. If you're having pain I suggest you use Tylenol, heating pads, ibuprofen and if this does not work you could also take Lorcet one to 2 tabs every 6 hours as needed to control your pain. If you' re using Lorcet you should also use something to prevent constipation such as MiraLAX. You should continue taking the Flomax every night. When you finish the antibiotics currently prescribed then I will prescribe for another week of a different antibiotic to be taken twice daily with food called Bactrim. You should also be using probiotics twice daily at least a half hour before taking your antibiotics. This will prevent a bad diarrheal side effect common to antibiotics. If you're having worsening symptoms you should present yourself to a urologist if your symptoms start to include intractable nausea, vomiting or fevers or you're just unable to control the pain you should present to an ER preferably one that we will have urology coverage over the next week. Most of the small ERs in [facility] are covered by the same urologist who will be out of town for the following week. Any of the ERs in [place] will have urology coverage the following week. If you're unable to present to an ER with urology coverage then you should go to the nearest ER available. It is very important that you do not miss or skip doses of antibiotics as this can select for more drug-resistant organisms in the urine. I suggest setting alarm on your phone to remind you when you're doses of medicines are due. All discharge instructions reviewed with patient and/or family. Voiced understanding. Scripts Sulfamethoxazole/Trimethoprim (Bactrim Ds Tablet) 1 Each Tablet 1 EACH PO BID for 7 Days, #14 TAB 0 Refills Prov: KEN ZUNIGA 03/21/17 Tamsulosin HCl (Tamsulosin HCl) 0.4 Mg Cap.er.24h 0.4 MG PO HS, #30 CAP 0 Refills Prov: KEN ZUNIGA 03/21/17 Hydrocodone/Acetaminophen (Hydrocodon-Acetaminophn 10-325) 1 Each Tablet 1 EACH PO Q6H Y for PAIN-MODERATE TO SEVERE, #24 TAB 0 Refills Prov: KEN ZUNIGA 03/21/17 Copy Copies To 1: CIRA BRANDT DO KEN ZUNIGA Mar 21, 2017 06:31
[2017-03-21] MEDS ORDERED: ONDANSETRON 4 MG/2 ML (SDV) Z0FRAN IVP ONE (06:45)
[2017-03-21 06:58] LABS: BASOPHILS # (AUTO) 0.1 10^3/uL (0.0-0.1); BASOPHILS % (AUTO) 0 % (0-10); EOSINOPHILS # (AUTO) 0.2 10^3/uL (0.0-0.3); EOSINOPHILS % (AUTO) 1 % (0-10); LYMPHOCYTES # (AUTO) 2.4 X 10^3 (1.0-4.0); LYMPHOCYTES % (AUTO) 15 % (12-44); MEAN CORPUSCULAR HEMOGLOBIN 30 PG (25-34); MEAN CORPUSCULAR HGB CONC 34 G/DL (32-36); MEAN CORPUSCULAR VOLUME 87 FL (80-99); MEAN PLATELET VOLUME 9.4 FL (7.4-10.4); MONOCYTES # (AUTO) 1.2 X 10^3 (0.0-1.0); MONOCYTES % (AUTO) 8 % (0-12); NEUTROPHILS % (AUTO) 75 % (42-75); PLATELET COUNT 351 10^3/uL (130-400); RED BLOOD COUNT 4.78 10^6/uL (4.35-5.85); RED CELL DISTRIBUTION WIDTH 12.3 % (10.0-14.5); WHITE BLOOD COUNT 15.9 10^3/uL (4.3-11.0)
[2017-03-21 07:13] LABS: ANION GAP 13 MMOL/L (5-14); BLOOD UREA NITROGEN 17 MG/DL (7-18); BUN/CREATININE RATIO 15; CALCIUM 9.7 MG/DL (8.5-10.1); CARBON DIOXIDE 22 MMOL/L (21-32); CHLORIDE 105 MMOL/L (98-107); CREATININE SERUM 1.12 MG/DL (0.60-1.30); GFR ESTIMATED > 60; GLUCOSE 122 MG/DL (70-105); POTASSIUM 3.4 MMOL/L (3.6-5.0); SODIUM 140 MMOL/L (135-145)
[2017-03-21 07:33] LABS: EOSINOPHILS % (MANUAL) 1 %; LYMPHOCYTES % (MANUAL) 25 %; METAMYELOCYTES % 1 %; NEUTROPHILS % (MANUAL) 66 %
[2017-03-21 07:54] LABS: BILIRUBIN,URINE NEGATIVE (NEGATIVE); KETONES,URINE 1+ (NEGATIVE); LEUKOCYTE ESTERASE ,URINE 2+ (NEGATIVE); NITRITE,URINE NEGATIVE (NEGATIVE); PH,URINE 6 (5-9); PROTEIN,URINE 2+ (NEGATIVE); UROBILINOGEN,URINE 1 MG/DL (NORMAL)
[2017-03-21 07:55] LABS: WBC,URINE 25-50 /HPF
[2017-03-21] MEDS ORDERED: HYDR-3820 PO (08:57)
[2017-03-21] MEDS ORDERED: TAMS0.4C2 PO (08:57)
[2017-03-21] MEDS ORDERED: SULF1TAB35 PO (08:57)
[2017-03-21 09:00] VITALS: BP 104/64
--- NOTE | 2017-03-21 10:18 | Diagnostic Imaging Report ---
INDICATION: History of kidney stones. Back pain. EXAMINATION: Abdomen dated 03/21/2017 COMPARISON: 03/13/2017 FINDINGS: 2 views of the abdomen demonstrate bilateral nipple rings overlying the lower chest. Visualized lungs clear. No free air seen beneath the diaphragm. There is a nonobstructive bowel gas pattern. Findings of constipation noted. Osseous structures intact. There is a hyperdensity in the left pelvis stable from previous and consistent with the known distal left ureteral stone. IMPRESSION: 1. Stable left distal ureteral stone. 2. Nonobstructive bowel gas pattern with mild constipation. Dictated by: Dictated on workstation # [id number]
== END 2017-03-21 09:00 | disposition home or self-care (01) ==
LOC: EDUNIT# 06:09 → ER 06:10
DX: N39.0 Urinary tract infection, site not specified (principal); N20.1 Calculus of ureter; F17.210 Nicotine dependence, cigarettes, uncomplicated
CPT/HCPCS: 36415; 74000; 80048; 81000; 83605; 84703; 85007; 85027; 87088

== ENCOUNTER 2017-03-24 01:24 | Emergency (ER) | payer SELFPAY ==
[~2017-03-24] VITALS: Ht 162.6 cm; Wt 86.2 kg
[~2017-03-24 01:24] MED LIST changes: +HYDR-3820 PO; +SULF1TAB35 PO; +TAMS0.4C2 PO
--- NOTE | 2017-03-24 01:43 | ED GU-Female ---
General Chief Complaint: Abdominal/GI Problems Stated Complaint: POSS KIDNEY STONES Source: patient, family, RN notes reviewed Exam Limitations: no limitations History of Present Illness Time seen by provider: 01:38 Initial Comments This is this patient's @ least 5th visit since 02/26/17 for the continued c/o left pain/LLQ abdominal pain. Was documented c/ a 5 mm ureteral stone in her distal left ureter @ that time. Has been referred to urology every time and not followed up because of not having insurance or $. With each previous visit, the stone appears to be stuck where it is despite conservative therapy. Probably needs intervention @ this point which has to be obtained thru urology. Patient debbie just requesting something to help c/ her pain until her father takes her to [place] later this morning to get "something done." Timing/Duration: constant Severity/Quality: severe Location: LLQ, left flank Radiation: none Activities at Onset: none Prior Genitourinary Problems: similar symptoms Modifying Factors: Improves With Other (nothing) Associated Symptoms: abdominal pain (LLQ), No dysuria, No fever/chills Allergies and Home Medications Allergies Coded Allergies: No Known Drug Allergies (Unverified , 02/25/09) Home Medications Ampicillin Trihydrate 500 Mg Capsule, 500 MG PO TID, #30 FOR INFECTION Prescribed by: KAYLEN BASURTO on 03/03/17 2159 Cephalexin 500 Mg Capsule, 500 MG PO TID, #30 Ref 0 Prescribed by: JOSE SHAH on 03/13/17 0354 Ciprofloxacin HCl 500 Mg Tablet, 500 MG PO BID, #14 Prescribed by: MARY KATE BETANCOURT on 02/27/17 0142 Diclofenac Sodium 50 Mg Tablet.dr, 50 MG PO Q6H PRN for pain, #30 Ref 0 Prescribed by: JOSE SHAH on 03/13/17 0354 Hydrocodone/Acetaminophen 1 Each Tablet, 1 EACH PO Q6H PRN for PAIN-MILD TO MODERATE, #14 Ref 0 Prescribed by: MARY KATE BETANCOURT on 02/27/17 0142 Hydrocodone/Acetaminophen 1 Each Tablet, 1 EACH PO Q6H PRN for PAIN-MODERATE TO SEVERE, #24 Ref 0 Prescribed by: KEN ZUNIGA on 03/21/17 0857 Ketorolac Tromethamine 10 Mg Tablet, 10 MG PO Q6H, #15 Prescribed by: KAYLEN BASURTO on 03/03/172158 Ondansetron 4 Mg Tab.rapdis, 4 MG PO Q4H, #10 Prescribed by: KAYLEN BASURTO on 03/03/172158 Sulfamethoxazole/Trimethoprim 1 Each Tablet, 1 EACH PO BID for 7 Days, #14 Ref 0 Prescribed by: KEN ZUNIGA on 03/21/17856 Tamsulosin HCl 0.4 Mg Cap, 0.4 MG PO DAILY, #10 Prescribed by: KAYLEN BASURTO on 03/03/172158 Tamsulosin HCl 0.4 Mg Cap.er.24h, 0.4 MG PO HS, #30 Ref 0 Prescribed by: KEN ZUNIGA on 03/21/17856 Constitutional: see HPI Gastrointestinal: LLQ, see HPI Genitourinary: see HPI, flank pain (left) : No All Other Systemes Reviewed Negative Unless Noted: Yes (Negative excepted noted.) Past Bmbwdbn-Fccsgu-Pjvwtf Hx Patient Social History Alcohol Use: Denies Use Recreational Drug Use: No Smoking Status: Current Someday Smoker Type Used: Cigarettes 2nd Hand Smoke Exposure: Yes Recent Foreign Travel: No Contact w/Someone Who Travel: No Recent Hopitalizations: No Immunizations Up To Date PED Vaccines UTD: No Seasonal Allergies Seasonal Allergies: Yes Surgeries HX Surgeries: No Respiratory Hx Respiratory Disorders: No Cardiovascular Hx Cardiac Disorders: No Neurological Hx Neurological Disorders: No Reproductive System Female Reproductive Disorders: Polycystic Ovarian Dis Genitourinary Hx Genitourinary Disorders: Yes Genitourinary Disorders: Kidney Stones Gastrointestinal Hx Gastrointestinal Disorders: No Musculoskeletal Hx Musculoskeletal Disorders: No Endocrine Hx Endocrine Disorders: No HEENT HX ENT Disorders: No Cancer Hx Cancer: No Psychosocial Hx Psychiatric Problems: No Integumentary HX Skin/Integumentary Disorder: No Blood Transfusions Hx Blood Disorders: No Physical Exam Vital Signs Vital Sign - Last 12Hours 03/24/17 01:28 Temp 99.3 Pulse 92 Resp 20 B/P (MAP) 128/85 Pulse Ox 99 O2 Delivery Room Air Capillary Refill : General Appearance: WD/WN, moderate distress, obese Cardiovascular: regular rate, rhythm Respiratory: no respiratory distress Gastrointestinal: soft, No distended, No guarding, No rebound, tenderness (LLQ) Rectal: deferred Back: CVA tenderness (L) Neurologic/Psychiatric: no motor/sensory deficits, alert, oriented x 3 Skin: warm/dry Progress/Results/Core Measures Results/Orders My Orders Orders - JOSE SHAH DO Ketorolac Injection (Toradol Injection) (03/24/17 02:00) Vital Signs/I&O Departure Impression Impression: Primary Impression: Ureterolithiasis Additional Impression: Non-compliance Disposition: 01 HOME, SELF-CARE Condition: Stable Departure-Patient Inst. Decision time for Depature: 02:14 Referrals: [facility] (PCP) Primary Care Physician JOSE MIKE MD (Family) Primary Care Physician Patient Instructions: Kidney Stones (DC) Add. Discharge Instructions: All discharge instructions reviewed with patient and/or family. Voiced understanding. CONTINUE YOUR CURRENT MEDICATIONS DIRECTED. MUST OBTAIN UROLOGY FOLLOW UP FOR YOUR PROBLEM. JOSE SHAH DO Mar 24, 2017 01:43
[2017-03-24] MEDS ORDERED: KETOROLAC 60 MG/2 ML VIAL IM ONE (02:00)
[2017-03-24 02:25] VITALS: BP 127/88
== END 2017-03-24 02:25 | disposition home or self-care (01) ==
LOC: EDUNIT# 01:24 → ER 01:26
DX: N20.1 Calculus of ureter (principal); F17.210 Nicotine dependence, cigarettes, uncomplicated; Z87.42 Personal history of other diseases of the female genital tract; Z91.14 Patient's other noncompliance with medication regimen
CPT/HCPCS: 96372; 99282

== ENCOUNTER 2021-02-15 23:28 | Emergency (ER) | payer MEDICAID ==
[~2021-02-15] VITALS: Ht 163 cm; Wt 79.0 kg
[~2021-02-15 23:28] MED LIST changes: +ACHYD1T PO; +AMOX-358 PO; -CIPR500T4 PO; +CIPR500T5 PO; +FLUT9.9S NS; +HYDR-34 PO; -HYDR-3816 PO; -HYDR-3820 PO; +LORA1TAB59 PO; +METH4TAB PO; -TAMS0.4C98 PO; +TMSL.4C PO
[2021-02-16 01:16] LABS: BILIRUBIN,URINE NEGATIVE (NEGATIVE); CLARITY,URINE CLEAR; COLOR,URINE YELLOW; GLUCOSE, URINE (UA) 2+ (NEGATIVE); KETONES,URINE TRACE (NEGATIVE); LEUKOCYTE ESTERASE ,URINE 1+ (NEGATIVE); NITRITE,URINE POSITIVE (NEGATIVE); PROTEIN,URINE TRACE (NEGATIVE)
[2021-02-16 01:25] LABS: BACTERIA,URINE LARGE /HPF
--- NOTE | 2021-02-16 02:10 | ED Cough/URI ---
General Chief Complaint: Cough/Cold/Flu Symptoms Stated Complaint: FEVER/CONGESTION/BODYACHES 27 WKS PREG Nursing Triage Note: body aches, congestion, sore throat x3 days. Sepsis Screen: No Definite Risk Source: patient Exam Limitations: no limitations History of Present Illness Date Seen by Provider: February 16, 2021 Time Seen by Provider: 01:23 Initial Comments Patient presents ER by private conveyance from home chief complaint of sinus congestion, sore throat, body aches malaise without fever. Occasional nonproductive cough. She was concerned that she might have Covid. She is 27 weeks , G1 care by [facility]. Allergies and Home Medications Allergies Coded Allergies: No Known Drug Allergies (Unverified , 02/25/09) Home Medications Amoxicillin/Potassium Clav 1 Each Tablet, 1 EACH PO BID Prescribed by: KAYLEN BASURTO on 05/30/182229 Ampicillin Trihydrate 500 Mg Capsule, 500 MG PO TID FOR INFECTION Prescribed by: KAYLEN BASURTO on 03/03/172158 Cephalexin 500 Mg Capsule, 500 MG PO TID Prescribed by: JOSE SHAH on 03/13/17353 Ciprofloxacin HCl 500 Mg Tablet, 500 MG PO BID Prescribed by: MARY KATE BETANCOURT on 02/27/17 014 Diclofenac Sodium 50 Mg Tablet.dr, 50 MG PO Q6H PRN for pain Prescribed by: JOSE SHAH on 03/13/17 035 Fluticasone Propionate 9.9 Ml [place].susp, 2 SPRAYS NS BID Prescribed by: KAYLEN BASURTO on 05/30/182229 Hydrocodone Bit/Acetaminophen 1 Each Tablet, 1 EACH PO Q6H PRN for PAIN-MILD TO MODERATE Prescribed by: MARY KATE BETANCOURT on 02/27/17 014 Hydrocodone Bit/Acetaminophen 1 Each Tablet, 1 EACH PO Q6H PRN for PAIN-MODERATE TO SEVERE Prescribed by: KEN ZUNIGA on 03/21/17 0857 Ketorolac Tromethamine 10 Mg Tablet, 10 MG PO Q6H Prescribed by: KAYLEN BASURTO on 03/03/172158 Loratadine/Pseudoephedrine 1 Each Tab.er.12h, 1 EACH PO BID Prescribed by: KAYLEN BASURTO on 05/30/182229 Methylprednisolone 4 Mg Tab.ds.pk, 4 MG PO UD Prescribed by: KAYLEN BASURTO on 05/30/182229 Ondansetron 4 Mg Tab.rapdis, 4 MG PO Q4H Prescribed by: KAYLEN BASURTO on 03/03/172158 Sulfamethoxazole/Trimethoprim 1 Each Tablet, 1 EACH PO BID Prescribed by: KEN ZUNIGA on 03/21/17 0857 Tamsulosin HCl 0.4 Mg Cap, 0.4 MG PO DAILY Prescribed by: KAYLEN BASURTO on 03/03/172158 Tamsulosin HCl 0.4 Mg Cap.er.24h, 0.4 MG PO HS Prescribed by: KEN ZUNIGA on 03/21/17 0857 Patient Home Medication List Home Medication List Reviewed: Yes Review of Systems Review of Systems Constitutional: No chills, No diaphoresis EENTM: No ear discharge, No ear pain Respiratory: No cough, No short of breath Cardiovascular: No chest pain, No palpitations Gastrointestinal: No abdominal pain, No nausea, No vomiting Genitourinary: No discharge, No dysuria All Other Systems Reviewed Negative Unless Noted: Yes Past Aftcwar-Qabbss-Zzbohl Hx Patient Social History Alcohol Use: Denies Use Smoking Status: Never a Smoker Type Used: Cigarettes 2nd Hand Smoke Exposure: Yes Recent Infectious Disease Expo: No Recent Hopitalizations: No Immunizations Up To Date Tetanus Booster (TDap): Unknown PED Vaccines UTD: No Seasonal Allergies Seasonal Allergies: No Past Medical History Surgeries: No Respiratory: No Cardiac: No Neurological: No : Yes Reproductive Disorders: Yes Female Reproductive Disorders: Polycystic Ovarian Dis Genitourinary: Yes Kidney Stones Gastrointestinal: No Musculoskeletal: No Endocrine: No HEENT: No Cancer: No Did You Recieve Any Treatments: No Psychosocial: No Integumentary: No Blood Disorders: No Physical Exam Vital Signs - First Documented Capillary Refill : Less Than 3 Seconds Height: 5'4.00" Weight: 183lbs. oz. 83.173969ag; 29.00 BMI Method:Stated General Appearance: WD/WN, no apparent distress Eyes: Bilateral Eye Normal Inspection, Bilateral Eye PERRL, Bilateral Eye EOMI HEENT: PERRL/EOMI, TMs normal; No pharynx normal (Retropharyngeal erythema without exudate) Neck: full range of motion, normal inspection Respiratory: lungs clear, normal breath sounds, no respiratory distress, no a ccessory muscle use Cardiovascular: normal peripheral pulses, regular rate, rhythm Gastrointestinal: non tender, soft Extremities: normal range of motion, normal capillary refill Neurologic/Psychiatric: alert, normal mood/affect, oriented x 3 Progress/Results/Core Measures Suspected Sepsis Recent Fever Within 48 Hours: No Infection Criteria Present: None New/Unexplained Altered Menta: No Sepsis Screen: No Definite Risk SIRS Temperature: Pulse: 99 Respiratory Rate: 18 Blood Pressure 123 /79 Mean: 94 Results/Orders Lab Results Laboratory Tests Test 02/16/21 00:51 Range/Units Urine Color YELLOW Urine Clarity CLEAR Urine pH 7.0 5-9 Urine Specific [place] 1.015 L 1.016-1.022 Urine Protein TRACE H NEGATIVE Urine Glucose (UA) 2+ H NEGATIVE Urine Ketones TRACE H NEGATIVE Urine Nitrite POSITIVE H NEGATIVE Urine Bilirubin NEGATIVE NEGATIVE Urine Urobilinogen 1.0 < = 1.0 MG/DL Urine Leukocyte Esterase 1+ H NEGATIVE Urine RBC (Auto) NEGATIVE NEGATIVE Urine RBC NONE /HPF Urine WBC 10-25 H /HPF Urine Squamous Epithelial Cells 10-25 H /HPF Urine Renal Epithelial Cells 2-5 /HPF Urine Crystals NONE /LPF Urine Bacteria LARGE H /HPF Urine Casts NONE /LPF Urine Mucus NEGATIVE /LPF Urine Culture Indicated YES SARS-CoV-2 RNA (RT-PCR) Negative Not Detecte My Orders Orders - KEN ZUNIGA Covid 19 Inhouse Test (02/16/21 00:21) Ua Culture If Indicated (02/16/21 00:29) Urine Bedside (02/16/21 00:29) Urine Culture (02/16/21 00:51) Vital Signs/I&O 02/16/21 02/16/21 00:45 00:45 Temp 37.0 Pulse 99 Resp 18 B/P (MAP) 123/79 (94) Pulse Ox 99 O2 Delivery Room Air Room Air Capillary Refill : Less Than 3 Seconds Blood Pressure Mean: 94 Progress Note : Time: 02:06 Progress Note Plan to treat her UTI. Conservative counseling for her common cold Departure Impression Primary Impression: UTI (urinary tract infection) Qualified Codes: N30.00 - Acute cystitis without hematuria Additional Impression: Viral upper respiratory tract infection Disposition: 01 HOME, SELF-CARE Condition: Stable Departure-Patient Inst. Decision time for Depature: 02:07 Referrals: [facility] ([place]) Primary Care Physician JOSE MIKE MD (Family) Primary Care Physician Patient Instructions: Urinary Tract Infection, Adult (DC), Upper Respiratory Infection ED Add. Discharge Instructions: Drink plenty of fluids. Salt water gargles as necessary for sore throat. Vapor rubs such as Vicks or Mentholatum. Throat lozenges, Tylenol, Benadryl or Claritin/Zyrtec as necessary for symptoms. Cephalexin 1 tablet twice a day with food for the next week to treat UTI All discharge instructions reviewed with patient and/or family. Voiced understanding. Scripts Cephalexin (Cephalexin) 500 Mg Tablet 500 MG PO BID for 7 Days, #14 TAB 0 Refills Prov: KEN ZUNIGA 02/16/21 KEN ZUNIGA February 16, 2021 02:10
[2021-02-16] MEDS ORDERED: CEPH500T PO (02:11)
[2021-02-16 02:14] VITALS: BP 115/76
== END 2021-02-16 02:14 | disposition home or self-care (01) ==
LOC: EDUNIT# 23:28 → ER 23:33
DX: O23.42 Unspecified infection of urinary tract in pregnancy, second trimester (principal); J06.9 Acute upper respiratory infection, unspecified; Z3A.27 27 weeks gestation of pregnancy; Z20.822 Contact with and (suspected) exposure to COVID-19; Z77.22 Contact with and (suspected) exposure to environmental tobacco smoke (acute) (chronic); Z79.52 Long term (current) use of systemic steroids
CPT/HCPCS: 81000; 84703; 87077; 87088; 87186; 99282; U0002; 87635

== ENCOUNTER 2021-05-17 09:24 | Inpatient (IN) | payer MEDICAID ==
[2021-05-17] VITALS (60 sets, daily range): BP systolic 106–160; BP diastolic 56–98
[~2021-05-17] VITALS: Ht 170.2 cm; Wt 83.6 kg
[~2021-05-17 09:24] MED LIST changes: +CEPH500T PO; -SULF1TAB35 PO
[2021-05-17] MEDS ORDERED: MINERAL OIL CONCENTRATE 99.9% 15 ML UDC TOP PRN (09:45)
[2021-05-17] MEDS ORDERED: MEPIVACAINE (CARBOCAINE) 2% 50 ML VIAL INJ PRN (09:45)
[2021-05-17] MEDS ORDERED: AMPICILLIN FOR IV USE 2,000 MG in WATER (STERILE) FOR INJECTION 14.8 ML IV SCH (10:01)
[2021-05-17] MEDS ORDERED: PREN1TAB19 PO (10:12)
[2021-05-17] MEDS ORDERED: FAMO-119 PO (10:12)
[2021-05-17] MEDS ORDERED: OXYTOCIN PRE-MIX DRIP 500 ML IV SCH ×2 (10:15→23:15)
[2021-05-17] MEDS: D5 LR IV SOLUTION 1,000 ML IV SCH ×2 (10:33→18:10)
[2021-05-17 10:43] LABS: BASOPHILS # (AUTO) 0.1 10^3/uL (0.0-0.1); BASOPHILS % (AUTO) 0 % (0-10); EOSINOPHILS # (AUTO) 0.1 10^3/uL (0.0-0.3); EOSINOPHILS % (AUTO) 0 % (0-10); HEMATOCRIT 36 % (35-52); HEMOGLOBIN 11.9 g/dL (11.5-16.0); LYMPHOCYTES # (AUTO) 1.6 10^3/uL (1.0-4.0); LYMPHOCYTES % (AUTO) 7 % (12-44); MEAN CORPUSCULAR HEMOGLOBIN 27 pg (25-34); MEAN CORPUSCULAR HGB CONC 33 g/dL (32-36); MEAN CORPUSCULAR VOLUME 83 fL (80-99); MEAN PLATELET VOLUME 10.7 fL (9.0-12.2); MONOCYTES # (AUTO) 1.4 10^3/uL (0.0-1.0); MONOCYTES % (AUTO) 6 % (0-12); NEUTROPHILS # (AUTO) 20.7 10^3/uL (1.8-7.8); NEUTROPHILS % (AUTO) 87 % (42-75); PLATELET COUNT 461 10^3/uL (130-400); WHITE BLOOD COUNT 23.9 10^3/uL (4.3-11.0)
[2021-05-17 11:00] LABS: BAND NEUTROPHILS 4 %; EOSINOPHILS % (MANUAL) 1 %; LYMPHOCYTES % (MANUAL) 8 %; MONOCYTES % (MANUAL) 3 %; NEUTROPHILS % (MANUAL) 84 %
[2021-05-17 11:01] LABS: SPHEROCYTES SLIGHT
[2021-05-17] MEDS: BUTORPHANOL INJ 2 MG/ML (STADOL) VIAL IV PRN ×2 (15:12→16:55)
[2021-05-17] MEDS: AMPICILLIN FOR IV USE 1,000 MG in WATER (STERILE) FOR INJECTION 7.4 ML IV SCH ×2 (15:12→19:46)
[2021-05-17] MEDS: CATHETER FLUSH 10 ML SYR IV SCH ×2 (15:13→22:00)
--- NOTE | 2021-05-17 18:20 | History & Physical-OB ---
OB - Chief Complaint & HPI Date/Time Date of Admission: Date of Admission: Date seen by a Provider: May 17, 2021 Time Seen by a Provider: 18:00 Chief Complaint/History OB-Reason for Admission/Chief: Rupture of Membranes Hx : 1 Hx Para: 0 Expected Date of Delivery: May 13, 2021 Gestational Age in Weeks: 40 Gestational Age in Days: 3 Admission Nurse Assessment Rev: Yes History of Labs GBS positive Allergies and Home Medications Allergies Coded Allergies: No Known Drug Allergies (Unverified , 02/25/09) Home Medications Famotidine 20 Mg Tablet, 20 MG PO BID, (Reported) Last Action: New Order Vit/Iron Fumarate/FA 1 Each Tablet, 1 TAB PO DAILY, (Reported) Last Action: New Order Patient Home Medication List Home Medication List Reviewed: Yes OB - History Hx of Present Care: Yes Ultrasounds: Normal mid trimester US Obstetrical Complications: None Medical Complications: None Delivery History Hx Blood Disorders: No Patient Past Medical History No chronic medical problems Social History/Family History 2nd Hand Smoke Exposure: Yes Immunizations Hepatitis A: Yes Hepatitis B: Yes Tetanus Booster (TDap): Unknown OB - Admission Exam Physical Exam Vitals: Vital Signs 05/17/21 05/17/21 05/17/21 12:15 17:25 18:05 Temp 36.6 Pulse 78 Resp 20 B/P (MAP) 127/74 (91) Pulse Ox 97 O2 Delivery Room Air HEENT: Moist Membranes Heart: Rhythm Normal Lungs: Clear Abdomen: Gravid Cervical Dilatation: 2cm (on presentation) Effacement: 50% Station: Ballotable Membranes: Ruptured Amniotic Fluid: Thin Meconium Heart Rate: 140's Accelerations: Accelerations Present Short Term Variability: Present Retirement Variability: Average (6-25) Contractions on Admission: >10 Minutes Apart Intensity: Mild Labs Laboratory Tests Test 05/17/21 10:15 Range/Units White Blood Count 23.9 H 4.3-11.0 10^3/uL Red Blood Count 4.35 3.80-5.11 10^6/uL Hemoglobin 11.9 11.5-16.0 g/dL Hematocrit 36 35-52 % Mean Corpuscular Volume 83 80-99 fL Mean Corpuscular Hemoglobin 27 25-34 pg Mean Corpuscular Hemoglobin Concent 33 32-36 g/dL Red Cell Distribution Width 13.1 10.0-14.5 % Platelet Count 461 H 130-400 10^3/uL Mean Platelet Volume 10.7 9.0-12.2 fL Immature Granulocyte % (Auto) 1 % Neutrophils (%) (Auto) 87 H 42-75 % Lymphocytes (%) (Auto) 7 L 12-44 % Monocytes (%) (Auto) 6 0-12 % Eosinophils (%) (Auto) 0 0-10 % Basophils (%) (Auto) 0 0-10 % Neutrophils # (Auto) 20.7 H 1.8-7.8 10^3/uL Lymphocytes # (Auto) 1.6 1.0-4.0 10^3/uL Monocytes # (Auto) 1.4 H 0.0-1.0 10^3/uL Eosinophils # (Auto) 0.1 0.0-0.3 10^3/uL Basophils # (Auto) 0.1 0.0-0.1 10^3/uL Immature Granulocyte # (Auto) 0.2 H 0.0-0.1 10^3/uL Neutrophils % (Manual) 84 % Lymphocytes % (Manual) 8 % Monocytes % (Manual) 3 % Eosinophils % (Manual) 1 % Band Neutrophils 4 % Spherocytes SLIGHT Blood Morphology Comment OB - Assessment/Plan/Diagnosis Assessment Assessment: rupture of membranes (at term 40 weeks) Admission Dx 1. Intrauterine at term 40 weeks gestation 2. Spontaneous rupture of membranes meconium stained fluid 3. GBS positive perineal screening at 36 weeks Admission Status: Inpatient Order (span 2 midnights) Reason for Inpatient Admission: Labor and delivery Plan Plan: Expectant Management Other Plan 1. Pitocin as needed 2. Ampicillin protocol due to GBS positive 3. Patient desires IV pain meds before epidural TERRENCE JEFFREY MD May 17, 2021 18:20
[2021-05-17] MEDS ORDERED: fentaNYL 2 mcg/ml BUPIVA 0.125 100 ML ONE (18:23)
[2021-05-17] MEDS ORDERED: BUPIVACAINE 0.25% 30 ML (SENSORCAINE) VIAL ONE (18:55)
[2021-05-17] MEDS ORDERED: fentaNYL INJ 100 MCG/2 ML AMP ONE ×3 (18:55→23:52)
[2021-05-17] MEDS ORDERED: NALOXONE 0.4 MG/ML 1 ML (NARCAN) VIAL IV PRN ×3 (19:45→23:15)
[2021-05-17] MEDS ORDERED: diphenhydrAMINE 50 MG/ML INJ (BENADRYL) IV PRN (19:45)
[2021-05-17] MEDS ORDERED: ONDANSETRON 4 MG/2 ML (SDV) Z0FRAN IV PRN (19:45)
[2021-05-17] MEDS ORDERED: LACTATED RINGERS 1,000 ML IV SCH (19:45)
[2021-05-17] MEDS ORDERED: METOCLOPRAMIDE INJ 10 MG/2 ML (REGLAN) IV PRN (19:45)
[2021-05-17] MEDS ORDERED: EPIDURAL (fentaNYL 2 MCG/ML BUPIVA 0.125%)100 ML BAG EPI PRN (19:45)
[2021-05-17] MEDS ORDERED: AZITHROMYCIN INJECTION 500 MG/5 ML VIAL ONE (22:41)
[2021-05-17] MEDS ORDERED: METOCLOPRAMIDE INJ 10 MG/2 ML (REGLAN) ONE (22:45)
[2021-05-17] MEDS ORDERED: LACTATED RINGERS 1,000 ML IV PRN ×2 (22:45)
[2021-05-17] MEDS ORDERED: FAMOTIDINE 20MG/2ML IV (PEPCID) IV ONE (22:45)
[2021-05-17] MEDS ORDERED: CITRIC ACID/SOB CIT (BICITRA) 30 ML UDC ONE (22:45)
[2021-05-17] MEDS ORDERED: CITRIC ACID/SOB CIT (BICITRA) 30 ML UDC PO ONE (22:45)
[2021-05-17] MEDS ORDERED: METOCLOPRAMIDE INJ 10 MG/2 ML (REGLAN) IV ONE (22:45)
[2021-05-17] MEDS ORDERED: AZITHROMYCIN INJECTION 500 MG in NS (IVPB) 250 ML IV ONE (22:45)
[2021-05-17] MEDS ORDERED: FAMOTIDINE 20MG/2ML IV (PEPCID) ONE (22:46)
--- NOTE | 2021-05-17 22:51 | Labor Progress Note ---
Labor Progress Note Labor Progress Note Date Seen by Provider: May 17, 2021 Time Seen by Provider: 22:35 Subjective: Patient is very uncomfortable with contractions despite having epidural. Objective: Cervical exam: 4 cm Position: -3 station Presentation: Vertex heart tones: 140 bpm with reactivity noted Tocometer: Contractions every 3 minutes Assessment/Plan: Christine Marcano is a (25 /Para 1 / 0,Gestational Age (wks)40 is now noted to be with cephalopelvic disproportion as evidenced by failure to further dilate. She has been at 4 cm dilation over the past several hours despite adequate contractions and addition of Pitocin. She has epidural in place. Dr. Hickman has been notified and surgery crew notified as well. We will plan on primary low-transverse section. Patient as well as her significant oth er are in agreement. Vitals - Labs Vital Signs - I&O Vital Signs Date Time Temp Pulse Resp B/P (MAP) Pulse Ox O2 Delivery O2 Flow Rate FiO2 05/17/21 19:05 36.3 75 18 160/89 (112) Room Air 05/17/21 18:50 71 20 129/66 (87) Room Air 05/17/21 18:35 68 20 130/80 (97) Room Air 05/17/21 18:20 73 20 123/70 (87) Room Air 05/17/21 18:05 78 20 127/74 (91) Room Air 05/17/21 17:50 68 20 107/61 (76) Room Air 05/17/21 17:35 71 20 117/80 (92) Room Air 05/17/21 17:25 36.6 70 20 125/79 (94) Room Air 05/17/21 17:05 69 20 117/73 (88) Room Air 05/17/21 16:50 85 20 120/68 (85) Room Air 05/17/21 16:35 75 20 116/73 (87) Room Air 05/17/21 16:20 74 20 114/60 (78) Room Air 05/17/21 16:10 76 20 126/75 (92) Room Air 05/17/21 15:55 84 20 122/69 (86) Room Air 05/17/21 15:35 75 20 119/72 (88) Room Air 05/17/21 15:25 86 20 129/73 (91) Room Air 05/17/21 15:05 77 20 126/66 (86) Room Air 05/17/21 14:50 81 20 122/79 (93) Room Air 05/17/21 14:35 86 20 134/71 (92) Room Air 05/17/21 14:20 81 20 153/75 (101) Room Air 05/17/21 14:05 78 20 124/62 (82) Room Air 05/17/21 13:50 73 20 132/82 (99) Room Air 05/17/21 13:35 77 20 135/90 (105) Room Air 05/17/21 13:20 77 20 138/77 (97) Room Air 05/17/21 13:05 90 20 137/84 (101) Room Air 05/17/21 12:50 76 20 107/56 (73) Room Air 05/17/21 12:35 83 20 132/82 (99) Room Air 05/17/21 12:20 83 20 135/80 (98) Room Air 05/17/21 12:15 82 20 131/78 (95) 97 Room Air 05/17/21 11:50 87 20 127/80 (96) 97 Room Air 05/17/21 11:35 90 20 127/75 (92) 97 Room Air 05/17/21 11:20 86 20 129/76 (93) 97 Room Air 05/17/21 11:00 80 20 116/60 (78) 97 Room Air 05/17/21 10:50 79 20 126/66 (86) 97 Room Air 05/17/21 10:35 85 20 125/82 (96) 97 Room Air 05/17/21 10:20 95 20 121/79 (93) 97 Room Air 05/17/21 09:50 36.0 91 20 124/78 (93) 97 Room Air Labs Laboratory Tests 05/17/21 10:15: White Blood Count 23.9H, Red Blood Count 4.35, Hemoglobin 11.9, Hematocrit 36, Mean Corpuscular Volume 83, Mean Corpuscular Hemoglobin 27, Mean Corpuscular Hemoglobin Concent 33, Red Cell Distribution Width 13.1, Platelet Count 461H, Mean Platelet Volume 10.7, Immature Granulocyte % (Auto) 1, Neutrophils (%) (Auto) 87H, Lymphocytes (%) (Auto) 7L, Monocytes (%) (Auto) 6, Eosinophils (%) (Auto) 0, Basophils (%) (Auto) 0, Neutrophils # (Auto) 20.7H, Lymphocytes # (A uto) 1.6, Monocytes # (Auto) 1.4H, Eosinophils # (Auto) 0.1, Basophils # (Auto) 0.1, Immature Granulocyte # (Auto) 0.2H, Neutrophils % (Manual) 84, Lymphocytes % (Manual) 8, Monocytes % (Manual) 3, Eosinophils % (Manual) 1, Band Neutrophils 4, Spherocytes SLIGHT, Blood Morphology Comment TERRENCE JEFFREY MD May 17, 2021 22:51
[2021-05-17] MEDS ORDERED: LIDOCAINE PF 2% 5 ML (XYLOCAINE) VIAL ONE (22:59)
[2021-05-17] MEDS ORDERED: TETANUS,DIPTH,PERTUSS P/F (BOOSTRIX) 0.5 ML VIAL IM SCH (23:15)
[2021-05-17] MEDS ORDERED: MEASLES,MUMPS,RUBELLA 1 EA INJ SC SCH (23:15)
[2021-05-17] MEDS ORDERED: morphine INJ 4 MG/ML 1 ML (VIAL/SYRINGE) IV PRN (23:15)
--- NOTE | 2021-05-17 23:15 | Cesarean Section Operative ---
Procedure Procedure Note Pre-operative Diagnosis: Christine Marcano is a 25 /Para 1 / 0, Gestational Age 40 3/7 weeks with arrest of dilation, SROM with meconium stained fluid Post-operative Diagnosis: same, OP presentation Procedure: Primary low transverse section Physician: SARAI CHAPA [employer] Supervisor: Socrates Anderson MD Estimated blood loss: 300 mL Disposition: Anesthesia: Epidural and local (24 ml of 0.50 % Marcaine on skin, sub cu and fascia Findings: Viable female , Apgars 8/9, weight 8#3ounces, intact placenta, 3vc, normal appearing uterus, tubes, and ovaries. Indications:Christine Marcano is a 5 /Para 1 / 0,Gestational Age 40 3/7 weeks with arrest of dilation, SROM with meconium stained fluid Procedure Details: The patient was seen in pre-op and the procedure was discussed with the patient in full, including the risks, benefits, and alternatives. All questions were answered. The patient was taken to the operating room and a time out was performed, verifying patient and procedure. After spinal anesthesia was placed by our anesthesia colleagues, the patient was placed in the dorsal supine with leftward tilt for uterine displacement.~ Her abdomen was then prepped and draped in the typical sterile fashion. A P fannenstiel skin incision was made using a scalpel and carried down through the underlying fascia. The fascia was incised in the midline and tented up using Ramya clamps. On both the inferior and superior fascia side the rectus muscle was dissected off bluntly and sharply using Menon scissors. The peritoneum was identified and entered bluntly in the midline. This was then stretched laterally using manual strength. After entering the abdominal cavity and confirming lack of intraperitoneal adhesions, a large Raudel retractor was placed and the lower uterine segment was visualized. A bladder flap was created with the use of Metzenbaum scissors.~ A scalpel was utilized to make a low transverse uterine incision. Amniotomy was performed with an Allis clamp with return of clear fluid. The 's head was grasped and brought to the level of the incision. Fundal pressure was applied and was delivered without difficulty. Mouth and nares were suctioned with bulb suction. After the umbilical cord was clamped and cut, the infant was handed off to the pediatric staff. A sample of cord blood was then obtained. The placenta was delivered intact via uterine massage. The uterus was exteriorized and cleared of all clots and debris. The uterine incision was closed using 0 Vicryl in a running locked fashion. A second imbricated layer was placed using 0 Vicryl in a running fashion as well. The uterus was flexed forward and the posterior rectouterine space was inspected and cleared of all clots and debris. Again the hysterotomy site was examined and hemostasis was observed. The bilateral tubes and ovaries appeared normal. The uterus was placed back into the abdominal cavity and abdominal gutters were cleared of all clots and debris. A final check of the uterine incision showed it to be hemostatic. The peritoneum was closed using 3-0 Vicryl in a running fashion. The fascia was closed with 0 PDS in a running fashion. The subcutaneous space was hemostatic, and irrigated. The subcutaneous space was closed with 0 Plain in several single interrupted stitches. The skin was then closed using 4-0 Monocryl in a running subcuticular fashion. The skin edges were reapproximated together and were hemostatic. A pressure dressing was applied. All sponge, lap and needle counts were correct at the end of the procedure per nursing. Vitals - Labs Vital Signs - I&O Vital Signs Date Time Temp Pulse Resp B/P (MAP) Pulse Ox O2 Delivery O2 Flow Rate FiO2 05/17/21 19:05 36.3 75 18 160/89 (112) Room Air 05/17/21 18:50 71 20 129/66 (87) Room Air 05/17/21 18:35 68 20 130/80 (97) Room Air 05/17/21 18:20 73 20 123/70 (87) Room Air 05/17/21 18:05 78 20 127/74 (91) Room Air 05/17/21 17:50 68 20 107/61 (76) Room Air 05/17/21 17:35 71 20 117/80 (92) Room Air 05/17/21 17:25 36.6 70 20 125/79 (94) Room Air 05/17/21 17:05 69 20 117/73 (88) Room Air 05/17/21 16:50 85 20 120/68 (85) Room Air 05/17/21 16:35 75 20 116/73 (87) Room Air 05/17/21 16:20 74 20 114/60 (78) Room Air 05/17/21 16:10 76 20 126/75 (92) Room Air 05/17/21 15:55 84 20 122/69 (86) Room Air 05/17/21 15:35 75 20 119/72 (88) Room Air 05/17/21 15:25 86 20 129/73 (91) Room Air 05/17/21 15:05 77 20 126/66 (86) Room Air 05/17/21 14:50 81 20 122/79 (93) Room Air 05/17/21 14:35 86 20 134/71 (92) Room Air 05/17/21 14:20 81 20 153/75 (101) Room Air 05/17/21 14:05 78 20 124/62 (82) Room Air 05/17/21 13:50 73 20 132/82 (99) Room Air 05/17/21 13:35 77 20 135/90 (105) Room Air 05/17/21 13:20 77 20 138/77 (97) Room Air 05/17/21 13:05 90 20 137/84 (101) Room Air 05/17/21 12:50 76 20 107/56 (73) Room Air 05/17/21 12:35 83 20 132/82 (99) Room Air 05/17/21 12:20 83 20 135/80 (98) Room Air 05/17/21 12:15 82 20 131/78 (95) 97 Room Air 05/17/21 11:50 87 20 127/80 (96) 97 Room Air 05/17/21 11:35 90 20 127/75 (92) 97 Room Air 05/17/21 11:20 86 20 129/76 (93) 97 Room Air 05/17/21 11:00 80 20 116/60 (78) 97 Room Air 05/17/21 10:50 79 20 126/66 (86) 97 Room Air 05/17/21 10:35 85 20 125/82 (96) 97 Room Air 05/17/21 10:20 95 20 121/79 (93) 97 Room Air 05/17/21 09:50 36.0 91 20 124/78 (93) 97 Room Air Labs Laboratory Tests 05/17/21 10:15: White Blood Count 23.9H, Red Blood Count 4.35, Hemoglobin 11.9, Hematocrit 36, Mean Corpuscular Volume 83, Mean Corpuscular Hemoglobin 27, Mean Corpuscular Hemoglobin Concent 33, Red Cell Distribution Width 13.1, Platelet Count 461H, Mean Platelet Volume 10.7, Immature Granulocyte % (Auto) 1, Neutrophils (%) (Auto) 87H, Lymphocytes (%) (Auto) 7L, Monocytes (%) (Auto) 6, Eosinophils (%) (Auto) 0, Basophils (%) (Auto) 0, Neutrophils # (Auto) 20.7H, Lymphocytes # (Auto) 1.6, Monocytes # (Auto) 1.4H, Eosinophils # (Auto) 0.1, Basophils # (Auto) 0.1, Immature Granulocyte # (Auto) 0.2H, Neutrophils % (Manual) 84, Lymphocytes % (Manual) 8, Monocytes % (Manual) 3, Eosinophils % (Manual) 1, Band Neutrophils 4, Spherocytes SLIGHT, Blood Morphology Comment SARAI CHAPA DO May 17, 2021 23:15
[2021-05-17] MEDS ORDERED: KETAMINE HCL 100 MG/ML 5 ML VIAL ONE (23:33)
[2021-05-17] MEDS ORDERED: OXYTOCIN PRE-MIX DRIP 1,000 ML IV ONE (23:33)
[2021-05-18] VITALS (12 sets, daily range): BP systolic 117–141; BP diastolic 62–87
[2021-05-18] MEDS ORDERED: fentaNYL INJ 100 MCG/2 ML AMP ONE (00:13)
[2021-05-18] MEDS: KETOROLAC 30 MG/ML VIAL IV SCH ×2 (00:15→06:04)
[2021-05-18] MEDS ORDERED: proPOfol 200 MG/20 ML (DIPRIVAN) VIAL IV ONE (00:19)
[2021-05-18] MEDS ORDERED: OXC5T PO (00:28)
[2021-05-18] MEDS ORDERED: ACET-93 PO (00:28)
[2021-05-18] MEDS ORDERED: IBUP-844 PO (00:28)
[2021-05-18] MEDS ORDERED: BUPIVACAINE 0.5% 30 ML (SENSORCAINE) VIAL ONE (00:37)
[2021-05-18] MEDS ORDERED: CATHETER FLUSH 10 ML SYR IV SCH (06:00)
[2021-05-18] MEDS: ACETAMINOPHEN 500 MG TAB (TYLENOL) PO SCH ×3 (06:04→23:44)
[2021-05-18 06:33] LABS: BASOPHILS # (AUTO) 0.1 10^3/uL (0.0-0.1); BASOPHILS % (AUTO) 0 % (0-10); EOSINOPHILS # (AUTO) 0.1 10^3/uL (0.0-0.3); EOSINOPHILS % (AUTO) 0 % (0-10); HEMATOCRIT 31 % (35-52); HEMOGLOBIN 10.2 g/dL (11.5-16.0); LYMPHOCYTES # (AUTO) 1.1 10^3/uL (1.0-4.0); LYMPHOCYTES % (AUTO) 4 % (12-44); MEAN CORPUSCULAR HEMOGLOBIN 28 pg (25-34); MEAN CORPUSCULAR HGB CONC 33 g/dL (32-36); MEAN CORPUSCULAR VOLUME 85 fL (80-99); MEAN PLATELET VOLUME 10.8 fL (9.0-12.2); MONOCYTES # (AUTO) 0.5 10^3/uL (0.0-1.0); MONOCYTES % (AUTO) 2 % (0-12); NEUTROPHILS # (AUTO) 25.1 10^3/uL (1.8-7.8); NEUTROPHILS % (AUTO) 93 % (42-75); PLATELET COUNT 430 10^3/uL (130-400); WHITE BLOOD COUNT 27.1 10^3/uL (4.3-11.0)
[2021-05-18] MEDS: DOCUSATE SODIUM 100 MG (COLACE) CAP PO SCH ×2 (08:29→23:44)
[2021-05-18] MEDS: FERROUS SULF 325 MG (IRON) TAB PO SCH (08:29)
--- NOTE | 2021-05-18 08:46 | Postpartum Progress Note ---
Post Op Post-operative Day #1 s/p PLTCS/ arrest of dilation/progression Subjective: Patient is without complaints. Ambulating, voiding after dove removed. Tolerating a regular diet without nausea or vomiting. Normal lochia. Pain is well controlled with oral pain medications. Passing flatus. [] feeding. [] Objective: 05/17/21 05/17/21 05/17/21 05/17/21 21:00 21:15 21:30 21:45 Temp 36.6 Pulse 70 79 73 83 Resp 18 18 18 18 B/P (MAP) 109/67 (81) 139/76 (97) 114/64 (81) 144/77 (99) Pulse Ox 98 98 98 O2 Delivery Room Air Room Air Room Air Room Air 05/17/21 05/17/21 05/17/21 05/17/21 22:00 22:15 22:30 22:45 Temp 36.2 Pulse 82 77 81 79 Resp 18 18 18 18 B/P (MAP) 147/70 (95) 141/75 (97) 133/79 (97) 153/88 (109) O2 Delivery Room Air Room Air Room Air Room Air 05/17/21 05/18/21 05/18/21 05/18/21 23:00 00:28 00:40 00:50 Temp 37 Pulse 82 Resp 18 22 17 20 B/P (MAP) 129/58 (81) 121/81 (94) 129/80 (96) 118/70 (86) Pulse Ox 96 97 95 O2 Delivery Room Air Room Air Room Air Room Air 05/18/21 05/18/21 05/18/21 05/18/21 01:00 01:10 01:20 01:30 Temp 37 36.6 Pulse 70 Resp 19 17 18 16 B/P (MAP) 123/80 (94) 124/87 (99) 131/86 (101) 141/79 (99) Pulse Ox 95 96 95 97 O2 Delivery Room Air Room Air Room Air Room Air 05/18/21 05/18/21 05/18/21 02:10 06:10 08:19 Temp 36.4 36.4 36.0 Pulse 72 60 64 Resp 18 16 16 B/P (MAP) 129/83 (98) 139/66 (90) 124/69 (87) Pulse Ox 95 97 98 O2 Delivery Room Air 05/18/21 00:00 Intake Total 1764.9 ml Balance 1764.9 ml Laboratory Tests Test 05/17/21 10:15 05/18/21 06:10 Range/Units White Blood Count 23.9 H 27.1 H 4.3-11.0 10^3/uL Red Blood Count 4.35 3.68 L 3.80-5.11 10^6/uL Hemoglobin 11.9 10.2 L 11.5-16.0 g/dL Hematocrit 36 31 L 35-52 % Mean Corpuscular Volume 83 85 80-99 fL Mean Corpuscular Hemoglobin 27 28 25-34 pg Mean Corpuscular Hemoglobin Concent 33 33 32-36 g/dL Red Cell Distribution Width 13.1 13.1 10.0-14.5 % Platelet Count 461 H 430 H 130-400 10^3/uL Mean Platelet Volume 10.7 10.8 9.0-12.2 fL Immature Granulocyte % (Auto) 1 1 % Neutrophils (%) (Auto) 87 H 93 H 42-75 % Lymphocytes (%) (Auto) 7 L 4 L 12-44 % Monocytes (%) (Auto) 6 2 0-12 % Eosinophils (%) (Auto) 0 0 0-10 % Basophils (%) (Auto) 0 0 0-10 % Neutrophils # (Auto) 20.7 H 25.1 H 1.8-7.8 10^3/uL Lymphocytes # (Auto) 1.6 1.1 1.0-4.0 10^3/uL Monocytes # (Auto) 1.4 H 0.5 0.0-1.0 10^3/uL Eosinophils # (Auto) 0.1 0.1 0.0-0.3 10^3/uL Basophils # (Auto) 0.1 0.1 0.0-0.1 10^3/uL Immature Granulocyte # (Auto) 0.2 H 0.3 H 0.0-0.1 10^3/uL Neutrophils % (Manual) 84 % Lymphocytes % (Manual) 8 % Monocytes % (Manual) 3 % Eosinophils % (Manual) 1 % Band Neutrophils 4 % Spherocytes SLIGHT Blood Morphology Comment Physical Exam: General - Alert and oriented, no apparent distress Abdomen - Soft, appropriately tender to palpation, non-distended, fundus firm at umbilicus Incision - clean, dry and intact; no erythema or induration, no drainage Extremities - no edema, negative Beatriz's bilaterally [] Assessment: [] post-operative day # [], status post []. Recovering well, hemodynamically stable Acute blood loss anemia [] Plan: Routine post-operative care. Encourage breast feeding. Encourage ambulation. VTE prophylaxis: SCDs. Ferrous sulfate supplementation. Plan for discharge [] Vitals - Labs Vital Signs - I&O Vital Signs Date Time Temp Pulse Resp B/P (MAP) Pulse Ox O2 Delivery O2 Flow Rate FiO2 05/18/21 08:19 36.0 64 16 124/69 (87) 98 Room Air 05/18/21 06:10 36.4 60 16 139/66 (90) 97 05/18/21 02:10 36.4 72 18 129/83 (98) 95 05/18/21 01:30 36.6 70 16 141/79 (99) 97 Room Air 05/18/21 01:20 37 18 131/86 (101) 95 Room Air 05/18/21 01:10 17 124/87 (99) 96 Room Air 05/18/21 01:00 19 123/80 (94) 95 Room Air 05/18/21 00:50 20 118/70 (86) 95 Room Air 05/18/21 00:40 17 129/80 (96) 97 Room Air 05/18/21 00:28 37 22 121/81 (94) 96 Room Air 05/17/21 23:00 82 18 129/58 (81) Room Air 05/17/21 22:45 79 18 153/88 (109) Room Air 05/17/21 22:30 36.2 81 18 133/79 (97) Room Air 05/17/21 22:15 77 18 141/75 (97) Room Air 05/17/21 22:00 82 18 147/70 (95) Room Air 05/17/21 21:45 83 18 144/77 (99) Room Air 05/17/21 21:30 36.6 73 18 114/64 (81) 98 Room Air 05/17/21 21:15 79 18 139/76 (97) 98 Room Air 05/17/21 21:00 70 18 109/67 (81) 98 Room Air 05/17/21 20:45 74 18 117/74 (88) 98 Room Air 05/17/21 20:30 83 18 120/74 (89) 98 Room Air 05/17/21 20:15 65 18 113/67 (82) 97 Room Air 05/17/21 19:58 69 18 117/64 (81) 97 Room Air 05/17/21 19:52 69 18 115/60 (78) 98 Room Air 05/17/21 19:46 78 18 106/62 (77) 99 Room Air 05/17/21 19:43 75 18 112/70 (84) 98 Room Air 05/17/21 19:38 70 18 116/60 (78) 97 Room Air 05/17/21 19:32 85 18 118/74 (89) 98 Room Air 05/17/21 19:28 74 18 129/98 (108) 98 Room Air 05/17/21 19:23 76 20 122/75 (91) 98 Room Air 05/17/21 19:20 75 20 118/68 (85) 98 Room Air 05/17/21 19:15 81 20 138/79 (98) 97 Room Air 05/17/21 19:10 79 20 137/81 (99) 98 Room Air 05/17/21 19:05 36.3 75 18 160/89 (112) Room Air 05/17/21 18:50 71 20 129/66 (87) Room Air 05/17/21 18:35 68 20 130/80 (97) Room Air 05/17/21 18:20 73 20 123/70 (87) Room Air 05/17/21 18:05 78 20 127/74 (91) Room Air 05/17/21 17:50 68 20 107/61 (76) Room Air 05/17/21 17:35 71 20 117/80 (92) Room Air 05/17/21 17:25 36.6 70 20 125/79 (94) Room Air 05/17/21 17:05 69 20 117/73 (88) Room Air 05/17/21 16:50 85 20 120/68 (85) Room Air 05/17/21 16:35 75 20 116/73 (87) Room Air 05/17/21 16:20 74 20 114/60 (78) Room Air 05/17/21 16:10 76 20 126/75 (92) Room Air 05/17/21 15:55 84 20 122/69 (86) Room Air 05/17/21 15:35 75 20 119/72 (88) Room Air 05/17/21 15:25 86 20 129/73 (91) Room Air 05/17/21 15:05 77 20 126/66 (86) Room Air 05/17/21 14:50 81 20 122/79 (93) Room Air 05/17/21 14:35 86 20 134/71 (92) Room Air 05/17/21 14:20 81 20 153/75 (101) Room Air 05/17/21 14:05 78 20 124/62 (82) Room Air 05/17/21 13:50 73 20 132/82 (99) Room Air 05/17/21 13:35 77 20 135/90 (105) Room Air 05/17/21 13:20 77 20 138/77 (97) Room Air 05/17/21 13:05 90 20 137/84 (101) Room Air 05/17/21 12:50 76 20 107/56 (73) Room Air 05/17/21 12:35 83 20 132/82 (99) Room Air 05/17/21 12:20 83 20 135/80 (98) Room Air 05/17/21 12:15 82 20 131/78 (95) 97 Room Air 05/17/21 11:50 87 20 127/80 (96) 97 Room Air 05/17/21 11:35 90 20 127/75 (92) 97 Room Air 05/17/21 11:20 86 20 129/76 (93) 97 Room Air 05/17/21 11:00 80 20 116/60 (78) 97 Room Air 05/17/21 10:50 79 20 126/66 (86) 97 Room Air 05/17/21 10:35 85 20 125/82 (96) 97 Room Air 05/17/21 10:20 95 20 121/79 (93) 97 Room Air 05/17/21 09:50 36.0 91 20 124/78 (93) 97 Room Air I & O 05/18/21 07:00 Intake Total 3944.9 ml Output Total 700 ml Balance 3244.9 ml Labs Laboratory Tests 05/17/21 10:15: White Blood Count 23.9H, Red Blood Count 4.35, Hemoglobin 11.9, Hematocrit 36, Mean Corpuscular Volume 83, Mean Corpuscular Hemoglobin 27, Mean Corpuscular Hemoglobin Concent 33, Red Cell Distribution Width 13.1, Platelet Count 461H, Mean Platelet Volume 10.7, Immature Granulocyte % (Auto) 1, Neutrophils (%) (A uto) 87H, Lymphocytes (%) (Auto) 7L, Monocytes (%) (Auto) 6, Eosinophils (%) (Auto) 0, Basophils (%) (Auto) 0, Neutrophils # (Auto) 20.7H, Lymphocytes # (Auto) 1.6, Monocytes # (Auto) 1.4H, Eosinophils # (Auto) 0.1, Basophils # (Auto) 0.1, Immature Granulocyte # (Auto) 0.2H, Neutrophils % (Manual) 84, Lymphocytes % (Manual) 8, Monocytes % (Manual) 3, Eosinophils % (Manual) 1, Band Neutrophils 4, Spherocytes SLIGHT, Blood Morphology Comment 05/18/21 06:10: White Blood Count 27.1H, Red Blood Count 3.68L, Hemoglobin 10.2L, Hematocrit 31L , Mean Corpuscular Volume 85, Mean Corpuscular Hemoglobin 28, Mean Corpuscular Hemoglobin Concent 33, Red Cell Distribution Width 13.1, Platelet Count 430H, Mean Platelet Volume 10.8, Immature Granulocyte % (Auto) 1, Neutrophils (%) (Auto) 93H, Lymphocytes (%) (Auto) 4L, Monocytes (%) (Auto) 2, Eosinophils (%) (Auto) 0, Basophils (%) (Auto) 0, Neutrophils # (Auto) 25.1H, Lymphocytes # (Auto) 1.1, Monocytes # (Auto) 0.5, Eosinophils # (Auto) 0.1, Basophils # (Auto) 0.1, Immature Granulocyte # (Auto) 0.3H SARAI CHAPA DO May 18, 2021 08:46
--- NOTE | 2021-05-18 10:39 | Anesthesia-Regional Post-Op ---
Regional Patient Condition Mental Status: Alert, Oriented x3 Circulation: Same as Pre-Op Headache: Absent Sensation: Full Recovery Motor Block: Absent Post Op Complications Complications None Follow Up Care/Instructions Patient Instructions None needed. Anesthesia/Patient Condition Patient is doing well, no complaints, stable vital signs, no apparent adverse anesthesia problems. No complications reported per nursing. DIA MORAN CRNA May 18, 2021 10:39
[2021-05-18] MEDS: IBUPROFEN 600 MG (MOTRIN) TAB PO SCH ×3 (11:32→23:44)
[2021-05-19] VITALS: BP 133/67
[2021-05-19] MEDS ORDERED: IBUPROFEN 600 MG (MOTRIN) TAB PO SCH
[2021-05-19] MEDS: IBUPROFEN 600 MG (MOTRIN) TAB PO SCH ×2 (06:05→11:58)
[2021-05-19 06:08] VITALS: BP 133/67
[2021-05-19] MEDS: ACETAMINOPHEN 500 MG TAB (TYLENOL) PO SCH (08:21)
[2021-05-19] MEDS: FERROUS SULF 325 MG (IRON) TAB PO SCH (08:21)
[2021-05-19] MEDS: DOCUSATE SODIUM 100 MG (COLACE) CAP PO SCH (08:21)
--- NOTE | 2021-05-19 08:56 | Short Stay Summary ---
Discharge Summary Hospital Course Was the Problem List Reviewed?: Yes Final Diagnosis: arrest of dilation, primary CS Hospital Course Date of Admission: May 17, 2021 at 22:12 Admission Diagnosis : Family Physician/Provider: Briana Griffin MD Date of Discharge: 05/19/21 Discharge Diagnosis: [ ] Hospital Course: [ ] Labs and Pending Lab Test: Home Meds Active Acetaminophen 500 Mg Tablet 1,000 Mg PO Q8HR Oxyir Tablet (Oxycodone HCl) 5 Mg Tab 5 Mg PO Q4HR PRN Ibu (Ibuprofen) 600 Mg Tablet 600 Mg PO Q6HR Reported Pepcid (Famotidine) 20 Mg Tablet 20 Mg PO BID Vitamins Tablet ( Vit/Iron Fumarate/FA) 1 Each Tablet 1 Tab PO DAILY Discharge Instructions Discharge Diet: No Restrictions Activity as Tolerated: Yes Discharge Physical Examination Allergies: Coded Allergies: No Known Drug Allergies (Unverified , 02/25/09) Discharge Summary Date of Admission May 17, 2021 at 22:12 Date of Discharge SARAI CHAPA DO May 19, 2021 08:56
[2021-05-19] MEDS ORDERED: COVID-19 VACC,MRNA(MODERNA)/PF 100 MCG/0.5 ML VIAL IM ONE (09:00)
--- NOTE | 2021-05-19 09:13 | Postpartum Progress Note ---
Note Note Day # 2 Subjective: Patient is without complaints. Ambulating, voiding. Tolerating a regular diet without nausea or vomiting. Normal lochia. Pain is well controlled with oral pain medications. Breast feeding. Objective: Physical Exam: General - Alert and oriented, no apparent distress Abdomen - Soft, appropriately tender to palpation, non-distended, fundus firm at umbilicus Extremities - no edema, negative Beatriz's bilaterally Assessment: Post- day # 2, status post PLTCS. Recovering well, hemodynamically stable Acute blood loss anemia Plan: Routine care. Encourage breast feeding. Encourage ambulation. Ferrous sulfate supplementation. COVID vaccination #1 prior to DC Plan for discharge today Vitals - Labs Vital Signs - I&O Vital Signs Date Time Temp Pulse Resp B/P (MAP) Pulse Ox O2 Delivery O2 Flow Rate FiO2 05/19/21 06:08 36.4 68 18 133/67 (89) 97 05/19/21 00:00 36.4 74 18 133/67 (89) 97 05/18/21 19:40 36.6 82 18 117/63 (81) 97 05/18/21 11:30 36.2 77 16 128/62 (84) 97 Room Air I & O 05/19/21 07:00 Intake Total 2160 ml Output Total 1000 ml Balance 1160 ml MARK [employer]OWL[employer]NAGING MANAGER May 19, 2021 09:13
[2021-05-19 12:00] VITALS: BP 139/80
[2021-05-19 13:20] VITALS: BP 130/75
[2021-05-19 13:30] VITALS: BP 139/80
== END 2021-05-19 13:30 | disposition home or self-care (01) | DRG 787 ==
LOC: LDRP 09:24 → WSo 09:24 → LDRP 22:12 → WSo 23:30 → LDRP 05-18 02:25
PROVIDERS: ADMIT Family Medicine; ATTEND Family Medicine
PROC: 10D00Z1 Extraction of Products of Conception, Low, Open Approach (ICD-10-PCS; principal; 2021-05-17 23:23)
DX: O99.824 Streptococcus B carrier state complicating childbirth (principal); D62 Acute posthemorrhagic anemia; O90.81 Anemia of the puerperium; O48.0 Post-term pregnancy; Z3A.40 40 weeks gestation of pregnancy; Z37.0 Single live birth; O77.0 Labor and delivery complicated by meconium in amniotic fluid; O65.4 Obstructed labor due to fetopelvic disproportion, unspecified; O62.1 Secondary uterine inertia; Z77.22 Contact with and (suspected) exposure to environmental tobacco smoke (acute) (chronic); Z23 Encounter for immunization
CPT/HCPCS: 36415; 85007; 85025; 86850; 86900; 86901; 91301; 99212

== ENCOUNTER → 2022-12-11 | Outpatient (CLI) | payer MEDICAID ==
[~2022-12-11] MED LIST changes: +ACET-93 PO; +FAMO-119 PO; +IBUP-844 PO; +OXC5T PO; +PREN1TAB19 PO
--- NOTE | 2022-12-11 09:20 | Diagnostic Imaging Report ---
INDICATION: Maternal gestational diabetes. TECHNIQUE: Multiple real-time grayscale images were obtained over the gravid uterus. COMPARISON: None FINDINGS: Single live intrauterine is in cephalic presentation. Placenta is posteriorly positioned without previa. DAISY is normal at 20.04 cm. Biophysical profile was performed and scored 8/8, with a total of 2 points for breathing, 2 points for movement, 2 points for tone and 2 points for amniotic fluid volume. Biometrical measurements are as follows: Biparietal 8.90 cm, age 36 weeks 1 days. Head circumference 34.10 cm, age 39 weeks 2 days. Abdominal circumference 35.74 cm, age 39 weeks 5 days. Femur length 7.36 cm, age 37 weeks 5 days. Sonographic estimate age: 38 weeks 2 days. Sonographic estimated date of delivery: 12/23/2022. Estimated Weight: 3569 gm (+/- 521 gm). LMP percentile: 98%. heart rate: 126 beats per minute. number: 1 of 1. IMPRESSION: 1. Single live intrauterine has normal biophysical profile. Dictated by: Dictated on workstation # [id number]
== END ==
LOC: RAD 08:30
PROVIDERS: ATTEND Nurse Practitioner Women's Health
DX: O24.410 Gestational diabetes mellitus in pregnancy, diet controlled (principal); Z3A.38 38 weeks gestation of pregnancy
CPT/HCPCS: 76805; 76819

== ENCOUNTER 2022-12-22 12:11 | Outpatient (CLI) | payer MEDICAID ==
[~2022-12-22] VITALS: Ht 162.6 cm; Wt 85.5 kg
[2022-12-22] MEDS ORDERED: CALC300T4 PO (16:42)
[2022-12-22] MEDS ORDERED: OMEP10CA5 PO (16:42)
[2022-12-22] MEDS ORDERED: GLBR5T PO (17:13)
[2022-12-30] MEDS ORDERED: DOCU100C37 PO (07:19)
[2022-12-30] MEDS ORDERED: IBUP-844 PO (07:19)
[2022-12-30] MEDS ORDERED: ACHD5005 PO (07:19)
== END 2022-12-29 08:57 | disposition home or self-care (01) ==
LOC: PREOP 12:11
PROVIDERS: ATTEND Obstetrics & Gynecology
DX: Z01.818 Encounter for other preprocedural examination (principal)

== ENCOUNTER → 2022-12-25 | Outpatient (CLI) | payer MEDICAID ==
[~2022-12-25] MED LIST changes: +CALC300T4 PO; +GLBR5T PO; +OMEP10CA5 PO
--- NOTE | 2022-12-25 15:34 | Diagnostic Imaging Report ---
INDICATION: O24.45-gestational diabetes mellitus. TECHNIQUE: The fetus was observed for purposes of a biophysical profile evaluation. CORRELATION: 12/11/2022. FINDINGS: Intrauterine is currently in a cephalic presentation. The placenta is along the posterior aspect without evidence for previa. cardiac activity at 139 beats per minute. Normal amount of amniotic fluid with an index at 13.6 cm. Biophysical Profile Scoring: breathin Body movement: 2 tone: 2 Amniotic fluid: 2 Total BPP Score: 8/8 Biometrical measurements are as follows: Biparietal 9.24 cm, age 37 weeks 4 days. Head circumference 33.90 cm, age 39 weeks 0 days. Abdominal circumference 35.50 cm, age 39 weeks 3 days. Femur length 6.82 cm, age 35 weeks 1 days. Sonographic estimate age: 37 weeks 6 days. Sonographic estimated date of delivery: 01/09/2023. Estimated Weight: 3420 gm (+/- 500 gm). LMP percentile: 80%. heart rate: 139 beats per minute. number: 1 of 1. IMPRESSION: 1. Normal biophysical profile score. 2. Sonographically estimated age of 37 weeks 6 days for an estimated date of delivery of 01/09/2023. This is significantly different than the recently obtained biometrical growth parameters of 12/11/2022 which would essentially suggest no interval growth from prior. 3. Short-term follow-up repeat ultrasound imaging is recommended to document appropriate growth and development. Report was faxed to the office of Lyn Pope APRN at 3:29 p.m., by carine. Dictated by: Dictated on workstation # [id number]
== END ==
LOC: RAD 13:28
PROVIDERS: ATTEND Nurse Practitioner Women's Health
DX: O24.419 Gestational diabetes mellitus in pregnancy, unspecified control (principal); Z3A.37 37 weeks gestation of pregnancy
CPT/HCPCS: 76805; 76819

== ENCOUNTER 2022-12-30 05:39 | Inpatient (IN) | payer MEDICAID ==
[~2022-12-30] VITALS: Ht 160 cm; Wt 84.7 kg
[2022-12-30] VITALS (12 sets, daily range): BP systolic 98–122; BP diastolic 55–94
--- OUTSIDE RECORDS SUMMARY | 2022-12-30 05:43 | XMS REPORT ---
Author Author [facility] Address Unknown Phone Unavailable Care Team Providers Care Boatswains Mate Name Role Phone CRISTOFER NURIS Unavailable PROBLEMS Type Condition ICD9-CM Code [id number] Code Onset Dates Condition S tatus W/U Status Risk SNOMED Code Notes Problem Seasonal allergies J30.2 confirmed 4 [id number] Problem Diet controlled gestational diabetes arnaud litus (GDM) in third trimester O24.410 confirmed 88478247 Problem PCOS (polycystic ovarian syndrome) E28.2 co nfirmed [id number] ALLERGIES No Known Allergies ENCOUNTERS from 1996 to 2022-11-29 Encounter Location Date Provider Diagnosis [facility] [address] [facility] [id number] [address] [place] [address] Dec, N[facility]IS [place] care in sec ond trimester Z34.92 IMMUNIZATIONS Vaccine Route Administration Date Status Novel [id number], nasal Unknown Aug 30, 2009 A dministered STATE FUNDED FLULUVAL QUAD 0.5ML 6 MONTHS AND UP 2019 IM Int ramuscular Oct 08, 2020 Administered PRIVATE TDAP (BOOSTRIX) IM Intramuscular March 13, 2021 Adminis tered tdap (history) Unknown Dec 05, 2009 Administered influenza IIV4 (history) Unknown Aug 08, 2013 Adminis tered varivax (history) Unknown Dec 05, 2009 Administered mmr-II (history) Unknown February 01, 2001 Administered GARDASIL (HPV-3 DOSE) Unknown Jul 31, 2010 Pending influenza IIV3 (history) Unknown Aug 08, 2013 Pending hepatitis b pediatric (history) Unknown 1996 Administered hepatitis b pediatric (history) Unknown 1996 Administered hepatitis b pediatric (history) Unknown 1996 Administered mmr-II (history) Unknown January 31, 1997 Administered polio ipv (history) Unknown February 01, 2001 Administered infanrix dtap (history) Unknown February 01, 2001 Administ bari NEELY FLU 22-23 (FLULAVAL) AGE 6MO AND UP IM Intramuscular Aug 07, 2022 Administered DTaP-Hib Unknown 1996 Administered OPV Unknown 1996 Administered OPV Unknown 1996 Administered OPV Unknown 1996 Administered DTaP-Hib Unknown January 31, 1997 Administered DTaP-Hib Unknown 1996 Administered DTaP-Hib Unknown 1996 Administered Influenza, seasonal, injectable (split), for 3 yrs and up Unknow n Aug 11, 2010 Pending 1st Dose MODERNA COVID-19, mRNA, 0.5 mL Unknown May 19, 2021 Administered COVID-19 Moderna (history) Unknown Jun 19, 2021 Admin istered SOCIAL HISTORY Sex Assigned At : Social History Observation Description Sex Assigned At Unknown Alcohol Screen (Audit-C) Question Answer Notes Did you have a drink containing alcohol in the past year? No Points 0 Interpretation Negative Sexual History Question Answer Notes Had sex in the past 12 months (vaginal, oral, or anal)? Yes Last menstrual period 03/27/2022 Have you ever had a Sexually transmitted disease? No Prevention strategies discussed: Condoms with Men only Use protection? No PHQ2 Question Answer Notes In the last 2 weeks, how often have you had little interest or pleasure in doing things? Not at all In the last 2 weeks, how often have you been feeling down, depressed, or hopeless? Not at all Total PHQ2 Score 0 Tobacco use other than smoking: Question Answer Notes Are you an other tobacco user? No REASON FOR REFERRAL No Information VITAL SIGNS No information MEDICATIONS Medication SIG (Take, Route, Frequency, Duration) Notes Start Da te End Date Status 27-1 MG 1 tablet Orally Once a day Active Omeprazole 20 MG 1 capsule Orally Once a day for 30 days 0 3 Oct, 2022 Active PROCEDURES No Information RESULTS No Results REASON FOR VISIT U/S OB >14 weeks- Ashlyn Price RT(R)(M)RDMS,RVT MEDICAL (GENERAL) HISTORY Type Description Date Medical History kidney stone Medical History PCOS Surgical History wisdom teeth Surgical History 05/17/21 Hospitalization History Childbirth Goals Section No Information Health Concerns No Information MEDICAL EQUIPMENT No Information MENTAL STATUS No Information FUNCTIONAL STATUS No Information ASSESSMENTS Encounter Date Diagnosis Assessment Notes Treatment Notes Treatm ent Clinical Notes Dec, care in second trimester (ICD-1 0 - Z34.92) PLAN OF TREATMENT Next Appt Details Provider Name:NURIS [place], 2022-12-08 02 :20:00 PM, [address] [place], [address], Provider Name:NURIS STEINMARIOLA, 2022-12-17 02 :20:00 PM, [address] [place], [address], Provider Name:NURIS CRISTOFER, 2022-12-22 02 :20:00 PM, [address] [place], [address], Provider Name:NURIS GAMARIOLA, 2022-12-29 02 :40:00 PM, [address] [place], [address], Provider Name:NURIS STEINMARIOLA, 2023-01-05 02 :40:00 PM, [address] [place], [address], Insurance Providers Payer Name Payer Address Payer Phone Insured Name Patient Relati onship to Insured Coverage Start Date Coverage End Date Subscriber Number Group Nu mber ANA [address] [employer] [phone] Christine Marcano A Self - patient is the insured [id number] [place] [address] [address] [facility] [phone] YoungerChristine A Self - patient is the insured [id number]
--- OUTSIDE RECORDS SUMMARY | 2022-12-30 05:43 | XMS REPORT ---
Author Author [facility] Address Unknown Phone Unavailable Care Team Providers Care Center Sales And Service Associate Name Role Phone CRISTOFER NURIS Unavailable PROBLEMS Type Condition ICD9-CM Code [id number] Code Onset Dates Condition S tatus W/U Status Risk SNOMED Code Notes Problem Seasonal allergies J30.2 confirmed 4 [id number] Problem Diet controlled gestational diabetes arnaud litus (GDM) in third trimester O24.410 confirmed 32507404 Problem PCOS (polycystic ovarian syndrome) E28.2 co nfirmed [id number] ALLERGIES No Known Allergies ENCOUNTERS from 1996 to 2022-12-01 Encounter Location Date Provider Diagnosis [facility] [address] [facility] [id number] [address] [place] [address] Nov, N[facility] [place] care in sec ond trimester Z34.92 ; 17 weeks gestation of Z3A.17 and BMI 27.0-27.9,adult Z68.27 IMMUNIZATIONS Vaccine Route Administration Date Status COVID-19 Moderna (history) Unknown Jun 19, 2021 Admin istered 1st Dose MODERNA COVID-19, mRNA, 0.5 mL Unknown May 19, 2021 Administered PRIVATE FLU 22-23 (FLULAVAL) AGE 6MO AND UP IM Intramuscular Aug 07, 2022 Administered infanrix dtap (history) Unknown February 01, 2001 Administ ered influenza IIV4 (history) Unknown Aug 08, 2013 Adminis tered tdap (history) Unknown Dec 05, 2009 Administered STATE FUNDED FLULUVAL QUAD 0.5ML 6 MONTHS AND UP 2020 IM Int ramuscular Oct 08, 2020 Administered GARDASIL (HPV-3 DOSE) Unknown Jul 31, 2010 Pending DTaP-Hib Unknown January 31, 1997 Administered DTaP-Hib Unknown 1996 Administered DTaP-Hib Unknown 1996 Administered DTaP-Hib Unknown 1996 Administered OPV Unknown 1996 Administered OPV Unknown 1996 Administered OPV Unknown 1996 Administered Influenza, seasonal, injectable (split), for 3 yrs and up Unknow n Aug 11, 2010 Pending hepatitis b pediatric (history) Unknown 1996 Administered hepatitis b pediatric (history) Unknown 1996 Administered PRIVATE TDAP (BOOSTRIX) IM Intramuscular March 13, 2021 Adminis tered mmr-II (history) Unknown January 31, 1997 Administered Novel [id number]-[id number], nasal Unknown Aug 30, 2009 A dministered influenza IIV3 (history) Unknown Aug 08, 2013 Pending hepatitis b pediatric (history) Unknown 1996 Administered mmr-II (history) Unknown February 01, 2001 Administered polio ipv (history) Unknown February 01, 2001 Administered varivax (history) Unknown Dec 05, 2009 Administered SOCIAL HISTORY Sex Assigned At : Social [...] REASON FOR REFERRAL No Information VITAL SIGNS Height 64 in Nov, Weight 159.7 lbs Nov, Weight-kg 72.44 kg Nov, Temperature 98.2 degrees Fahrenheit Nov, Heart Rate 93 bpm Nov, Respiratory Rate 18 bpm Nov, Oximetry 96 % Nov, BMI 27.412 kg/m2 Nov, Blood pressure systolic 100 mmHg Nov, Blood pressure diastolic 62 mmHg Nov, MEDICATIONS Medication SIG (Take, Route, Frequency, Duration) Notes Start Da te End Date Status Blood Glucose Test - as directed In Vitro 4 times a day for 30 days Glucocard expression Nov, Active Omeprazole 20 MG 1 capsule Orally Once a day for 30 days 0 3 Oct, 2022 Active Lancets - as directed for 30 Nov, Acti ve 27-1 MG 1 tablet Orally Once a day Active PROCEDURES No Information RESULTS No Results REASON FOR VISIT OB f/u, OB gely- franca jacobs MEDICAL (GENERAL) HISTORY Type Description Date Medical History kidney stone Medical History PCOS Surgical History wisdom teeth Surgical History 05/17/21 Hospitalization History Childbirth Goals Section No Information Health Concerns No Information MEDICAL EQUIPMENT No Information MENTAL STATUS No Information FUNCTIONAL STATUS No Information ASSESSMENTS Encounter Date Diagnosis Assessment Notes Treatment Notes Treatm ent Clinical Notes Nov, care in second trimester (ICD-1 0 - Z34.92) Nov, 17 weeks gestation of (ICD-10 - Z3A.17) Nov, BMI 27.0-27.9,adult (ICD-10 - Z68.27) PLAN OF TREATMENT Medication Medication Name Sig Start Date Stop Date Blood Glucose Test - as directed In Vitro 4 times a day for 30 days Nov, Lancets - as directed for Nov, Next Appt Details 4 Weeks Reason: Provider Name:NURIS [place], 2022-12-08 02 :20:00 PM, [address] [place], [address], Provider Name:NURIS [place] 2022-12-17 02 :20:00 PM, [address] [place], [address], Provider Name:NURIS [place] 2022-12-22 02 :20:00 PM, [address] , [place], [address], Provider Name:NURSI [place] 2022-12-29 02 :40:00 PM, [address], [place], [address], Provider Name:NURIS [place], 2023-01-05 02 :40:00 PM, [address], [place], [address], Insurance Providers Payer Name Payer Address Payer Phone Insured Name Patient Relati onship to Insured Coverage Start Date Coverage End Date Subscriber Number Group Nu mber [place] [id number] [address] [facility] [id number] [phone] Christine Marcano A Self - patient is the insured [id number] [employer]ENT[employer] [facility] [phone] Christine Marcano A Self - patient is the insured [id number]
--- OUTSIDE RECORDS SUMMARY | 2022-12-30 05:43 | XMS REPORT ---
Author Author [facility] Address Unknown Phone Unavailable Care Team Providers Care Lug Breaker And Wire Puller Name Role Phone CRISTOFER NURIS Unavailable PROBLEMS Type Condition ICD9-CM Code [id number] Code Onset Dates Condition S tatus W/U Status Risk SNOMED Code Notes Problem Seasonal allergies J30.2 confirmed 4 [id number] Problem Diet controlled gestational diabetes arnaud litus (GDM) in third trimester O24.410 confirmed 39765933 Problem PCOS (polycystic ovarian syndrome) E28.2 co nfirmed [id number] ALLERGIES No Known Allergies ENCOUNTERS from 1996 to 2022-12-01 Encounter Location Date Provider Diagnosis [facility] [address] [facility] [id number] [address] [place] [address] Oct, N[facility] [place] care in sec ond trimester Z34.92 and 13 weeks gestation of Z3A.13 IMMUNIZATIONS Vaccine Route Administration Date Status PRIVATE TDAP (BOOSTRIX) IM Intramuscular March 13, 2021 Adminis tered Novel Zcuaqijvs-[id number], nasal Unknown Aug 30, 2009 A dministered Influenza, seasonal, injectable (split), for 3 yrs and up Unknow n Aug 11, 2010 Pending tdap (history) Unknown Dec 05, 2009 Administered influenza IIV4 (history) Unknown Aug 08, 2013 Adminis tered varivax (history) Unknown Dec 05, 2009 Administered mmr-II (history) Unknown February 01, 2001 Administered GARDASIL (HPV-3 DOSE) Unknown Jul 31, 2010 Pending hepatitis b pediatric (history) Unknown 1996 Administered hepatitis b pediatric (history) Unknown 1996 Administered hepatitis b pediatric (history) Unknown 1996 Administered mmr-II (history) Unknown January 31, 1997 Administered polio ipv (history) Unknown February 01, 2001 Administered infanrix dtap (history) Unknown February 01, 2001 Administ bari NEELY FLU 22-23 (FLULAVAL) AGE 6MO AND UP IM Intramuscular Aug 07, 2022 Administered STATE FUNDED FLULUVAL QUAD 0.5ML 6 MONTHS AND UP 2019 IM Int ramuscular Oct 08, 2020 Administered DTaP-Hib Unknown 1996 Administered DTaP-Hib Unknown 1996 Administered OPV Unknown 1996 Administered OPV Unknown 1996 Administered influenza IIV3 (history) Unknown Aug 08, 2013 Pending DTaP-Hib Unknown January 31, 1997 Administered DTaP-Hib Unknown 1996 Administered OPV Unknown 1996 Administered 1st Dose MODERNA COVID-19, mRNA, 0.5 mL [...] No Information VITAL SIGNS Height 64 in Oct, Weight 154 lbs Oct, Weight-kg 69.85 kg Oct, Temperature 98.0 degrees Fahrenheit Oct, Heart Rate 100 bpm Oct, Respiratory Rate 18 bpm Oct, BMI 26.434 kg/m2 Oct, Blood pressure systolic 98 mmHg Oct, Blood pressure diastolic 58 mmHg Oct, MEDICATIONS Medication SIG (Take, Route, Frequency, Duration) [...] tablet Orally Once a day Active PROCEDURES from 1996 to 2022-12-01 Procedure Date Ordered Date Performed Result Body Site ROUTINE VENIPUNCTURE 2020-11-07 N/A RESULTS No Results REASON FOR VISIT OB f/u---jose guadalupe VALDEZ MEDICAL (GENERAL) HISTORY Type Description Date Medical History kidney stone Medical History PCOS Surgical History wisdom teeth Surgical History 05/17/21 Hospitalization History Childbirth Goals Section No Information Health Concerns No Information MEDICAL EQUIPMENT No Information MENTAL STATUS No Information FUNCTIONAL STATUS No Information ASSESSMENTS Encounter Date Diagnosis Assessment Notes Treatment Notes Treatm ent Clinical Notes Oct, care in second trimester (ICD-1 0 - Z34.92) Oct, 13 weeks gestation of (ICD-10 - Z3A.13) Oct, Other This note was s cribed by Zak Zamora under the direct supervision of Dr. Cristofer LANDEROS who directed the entire visit and performed the exam. PLAN OF TREATMENT Medication Medication Name Sig Start Date Stop Date Blood Glucose Test - as directed In Vitro 4 times a day for 30 days Nov, Lancets - as directed for 30 Nov, Next Appt Details 4 Weeks Reason: Provider Name:NURIS [place], 2022-12-08 02 :20:00 PM, [address] [place], [address], Provider Name:NURIS [place] 2022-12-17 02 :20:00 PM, [address] [place], [address], Provider Name:NURIS [place] 2022-12-22 02 :20:00 PM, [address] [place], [address], Provider Name:NURIS [place] 2022-12-29 02 :40:00 PM, [address], [place], [address], Provider Name:NURIS [place], 2023-01-05 02 :40:00 PM, [address], [place], [address], Insurance Providers Payer Name Payer Address Payer Phone Insured Name Patient Relati onship to Insured Coverage Start Date Coverage End Date Subscriber Number Group Nu mber [id number] [facility] [phone] Christine Marcano A Self - patient is the insured [id number] [place] [address] [address] [facility] [phone] Christine Marcano A Self - patient is the insured [id number]
[2022-12-30] MEDS ORDERED: ceFAZolin INJECTION 2,000 MG in NS (IVPB) 50 ML IV ONE (05:45)
[2022-12-30] MEDS ORDERED: LACTATED RINGERS 1,000 ML IV PRN (05:45)
[2022-12-30] MEDS ORDERED: FAMOTIDINE 20MG/2ML IV (PEPCID) IV ONE (05:45)
[2022-12-30] MEDS ORDERED: CITRIC ACID/SOB CIT (BICITRA) 30 ML UDC PO ONE (05:45)
[2022-12-30] MEDS ORDERED: METOCLOPRAMIDE INJ 10 MG/2 ML (REGLAN) IV ONE (05:45)
[2022-12-30] MEDS ORDERED: CATHETER FLUSH 10 ML SYR IV PRN (05:45)
[2022-12-30] MEDS ORDERED: metroNIDAZOLE 500MG/100ML IVPB 100 ML IV ONE (05:45)
[2022-12-30 06:12] LABS: BILIRUBIN,URINE NEGATIVE (NEGATIVE); CLARITY,URINE CLEAR; COLOR,URINE YELLOW; GLUCOSE, URINE (UA) NEGATIVE (NEGATIVE); KETONES,URINE TRACE (NEGATIVE); LEUKOCYTE ESTERASE ,URINE 2+ (NEGATIVE); NITRITE,URINE NEGATIVE (NEGATIVE); PROTEIN,URINE NEGATIVE (NEGATIVE)
--- NOTE | 2022-12-30 06:14 | History & Physical-OB/GYN ---
CAMI ROTHMAN 12/30/22 0614: OB - Chief Complaint & HPI Date/Time Date of Admission: Date of Admission: Dec 30, 2022 at 05:39 Date seen by a Provider: Dec 30, 2022 Time Seen by a Provider: 06:25 Chief Complaint/History OB-Reason for Admission/Chief: Section Hx : 2 Hx Para: 1 Expected Date of Delivery: Jan 13, 2023 Gestational Age in Weeks: 38 Gestational Age in Days: 0 Indication for : desires repeat History of Labs A+ Antibody Neg VDRL NR HBsAg NR HIV NR RI G/C Neg GBS Positive Allergies and Home Medications Allergies Coded Allergies: No Known Drug Allergies (Unverified , 12/22/22) Patient Home Medication List Home Medication List Reviewed: Yes Acetaminophen (Acetaminophen) 500 Mg Tablet, 1,000 MG PO Q8HR Prescribed by: SARAI CHAPA on 05/18/21 0028 Calcium Carbonate (Tums) 300 Mg Calcium (750 Mg) Tab.chew, 300 MG PO for HEARTBURN, (Reported) Entered as Reported by: Ana Lilia Rider on 12/22/22 1642 Famotidine (Pepcid) 20 Mg Tablet, 20 MG PO BID, (Reported) Entered as Reported by: TAZ LANDERS on 05/17/21 1012 Glyburide (Glyburide) 5 Mg Tablet, 5 MG PO DAILY, (Reported) Entered as Reported by: Ana Lilia Rider on 12/22/22 1713 Omeprazole (Omeprazole) 10 Mg Capsule.dr, 10 MG PO for HEARTBURN, (Reported) Entered as Reported by: Ana Lilia Rider on 12/22/22 1642 Vit/Iron Fumarate/FA ( Vitamins Tablet) 1 Each Tablet, 1 TAB PO DAILY, (Reported) Entered as Reported by: TAZ LANDERS on 05/17/21 1012 OB - History Hx of Present Care: Yes Ultrasounds: Normal mid trimester US Obstetrical Complications: None Medical Complications: None Information Induced Hypertension: No Maternal Gestational Diabetes: No Hemorrhage: No Obstetrical History Hx : 2 Hx Para: 1 Number of Living Children: 1 Hx Multiple Gestation: No Hx Ectopic : No Hx Stillbirth: No Hx Complication: No Hx Induced Hypertens: No Hx Maternal Gestational Diabet: No Hx Hemorrhage: No Delivery History Hx Dystocia: No Hx Forceps Assisted Delivery: No Hx Vacuum Extraction Assisted: No Hx Placenta Abnormality: No Hx Distress: No Hx Large For Gestational Age I: No Hx Small for Gestational Age I: No Hx Section: Yes Hx Vaginal Delivery Post C-Sec: No Hx Blood Disorders: No Adverse Rxn to Tranfusion: No Patient Past Medical History No chronic medical problems Social History/Family History Alcohol Use: Denies Use Recreational Drug Use: No Smoking Cessation: Never smoker Immunizations Influenza Vaccine Up-to-Date: Yes; Up-to-Date First/Initial COVID19 Vaccine: 05/18/21 Second COVID19 Vaccination: 06/27/21 Hepatitis A: Yes Hepatitis B: Yes Tetanus Booster (TDap): Less than 5yrs Rubella: immune RPR/VDRL: Negative GBS Status: Negative HBsAG: Negative OB - Admission Exam Physical Exam Vitals: Vital Signs 12/30/22 05:52 Temp 36.5 Pulse 125 Resp 18 Pulse Ox 98 O2 Delivery Room Air HEENT: PERRLA Heart: Rhythm Normal Lungs: Clear Abdomen: Gravid Extremities: Normal Reflexes: Normal Heart Rate: 130's Accelerations: Accelerations Present Decelerations: No Decelerations Short Term Variability: Present [facility] Variability: Average (6-25) Contractions on Admission: 6-10 Minutes Apart Labs Laboratory Tests Test 12/30/22 05:58 Range/Units OB - Assessment/Plan/Diagnosis Assessment Assessment: section Admission Dx at 38 weeks 0 days gestational age Repeat , with hx of for labor dystocia GBS Positive Otherwise uncomplicated Admission Status: Inpatient Order (span 2 midnights) Reason for Inpatient Admission: Repeat Plan Plan: Section TOÑITO LINDO DO 12/30/22 0714: Allergies and Home Medications Allergies Coded Allergies: No Known Drug Allergies (Unverified , 12/22/22) Patient Home Medication List Acetaminophen (Acetaminophen) 500 Mg Tablet, 1,000 MG PO Q8HR Prescribed by: SARAI CHAPA on 05/18/21 0028 Calcium Carbonate (Tums) 300 Mg Calcium (750 Mg) Tab.chew, 300 MG PO for HEARTBURN, (Reported) Entered as Reported by: Ana Lilia Rider on 12/22/22 1642 Famotidine (Pepcid) 20 Mg Tablet, 20 MG PO BID, (Reported) Entered as Reported by: TAZ LANDERS on 05/17/21 1012 Glyburide (Glyburide) 5 Mg Tablet, 5 MG PO DAILY, (Reported) Entered as Reported by: Ana Lilia Rider on 12/22/22 1713 Omeprazole (Omeprazole) 10 Mg Capsule.dr, 10 MG PO for HEARTBURN, (Reported) Entered as Reported by: Ana Lilia Rider on 12/22/22 1642 Vit/Iron Fumarate/FA ( Vitamins Tablet) 1 Each Tablet, 1 TAB PO DAILY, (Reported) Entered as Reported by: TAZ LANDERS on 05/17/21 1012 OB - History Hx of Present Obstetrical Complications: Gestational Diabetes OB - Assessment/Plan/Diagnosis Assessment Admission Dx GDMA2 on glyburide Supervisory-Addendum Brief Verification & Attestation Participated in pt care: history Personally performed: exam Care discussed with: Medical Student Procedures: n/a Results interpretation: Verified all documentation Verification and Attestation of Medical Student E/M Service A medical student performed and documented this service in my presence. I reviewed and verified all information documented by the medical student and made modifications to such information, when appropriate. I personally performed the physical exam and medical decision making. Toñito Lindo Dec 30, 2022,07:13 CAMI ROTHMAN Dec 30, 2022 06:14 TOÑITO LINDO DO Dec 30, 2022 07:14
[2022-12-30 06:15] LABS: BASOPHILS # (AUTO) 0.1 10^3/uL (0.0-0.1); BASOPHILS % (AUTO) 0 % (0-10); EOSINOPHILS # (AUTO) 0.2 10^3/uL (0.0-0.3); EOSINOPHILS % (AUTO) 1 % (0-10); HEMATOCRIT 33 % (35-52); HEMOGLOBIN 10.5 g/dL (11.5-16.0); LYMPHOCYTES # (AUTO) 3.5 10^3/uL (1.0-4.0); LYMPHOCYTES % (AUTO) 16 % (12-44); MEAN CORPUSCULAR HEMOGLOBIN 26 pg (25-34); MEAN CORPUSCULAR HGB CONC 32 g/dL (32-36); MEAN CORPUSCULAR VOLUME 82 fL (80-99); MEAN PLATELET VOLUME 10.5 fL (9.0-12.2); MONOCYTES # (AUTO) 1.2 10^3/uL (0.0-1.0); MONOCYTES % (AUTO) 6 % (0-12); NEUTROPHILS # (AUTO) 16.5 10^3/uL (1.8-7.8); NEUTROPHILS % (AUTO) 76 % (42-75); PLATELET COUNT 653 10^3/uL (130-400); WHITE BLOOD COUNT 21.7 10^3/uL (4.3-11.0)
[2022-12-30] MEDS: LACTATED RINGERS 1,000 ML IV PRN ×3 (06:16→08:35)
[2022-12-30 06:29] LABS: ALBUMIN 3.3 GM/DL (3.2-4.5); POTASSIUM 3.7 MMOL/L (3.6-5.0)
[2022-12-30 06:30] LABS: CALCIUM 10.5 MG/DL (8.5-10.1)
[2022-12-30 06:31] LABS: TOTAL PROTEIN 6.7 GM/DL (6.4-8.2)
[2022-12-30 06:32] LABS: BACTERIA,URINE MODERATE /HPF; RBC,URINE 0-2 /HPF
[2022-12-30 06:33] LABS: BILIRUBIN,TOTAL 0.4 MG/DL (0.1-1.0)
[2022-12-30 06:35] LABS: CREATININE SERUM 0.79 MG/DL (0.60-1.30)
[2022-12-30] MEDS ORDERED: fentaNYL INJ 100 MCG/2 ML AMP ONE (07:08)
[2022-12-30] MEDS ORDERED: BUPIVACAINE 0.5% 30 ML (SENSORCAINE) VIAL ONE (07:08)
[2022-12-30] MEDS ORDERED: NALOXONE 0.4 MG/ML 1 ML (NARCAN) VIAL IV PRN (07:15)
[2022-12-30] MEDS ORDERED: TETANUS,DIPTH,PERTUSS P/F (BOOSTRIX) 0.5 ML VIAL IM SCH (07:15)
[2022-12-30] MEDS ORDERED: MEASLES,MUMPS,RUBELLA 1 EA INJ SC SCH (07:15)
[2022-12-30] MEDS ORDERED: ONDANSETRON 4 MG/2 ML (SDV) Z0FRAN IVP PRN (07:15)
--- NOTE | 2022-12-30 07:17 | Discharge Inst-Women's Service ---
Discharge Inst-Women's Serv Depart Medication/Instructions New, Converted or Re-Newed RX: Transmitted to Pharmacy Final Diagnosis POD 2 RLTCS Problems Reviewed?: Yes Consults/Follow Up Additional Follow Up: Yes Orders/Referrals Dr. Lindo in 7-10 days and [facility] in 6 weeks Activity Activity: Activity as Tolerated Driving Instructions: No Driving for 1 Week NO SMOKING: NO SMOKING Nothing Inside Vagina: No Douching, No [place], No Tampons Diet Discharge Diet: No Restrictions Symptoms to Report to : Bleeding Excessive, Pain Increased, Fever Over 101 Degrees F, Vaginal Bleeding Increase, Questions/Concerns For Any Problems or Questions: Contact Your Physician Skin/Wound Care Infection Signs and Symptoms: Increased Redness, Foul Odor of Wound, Increased Drainage, Skin Itchy or Has a Rash, Increased Swelling, Temperature Above 101 F Operative Area Clean and Dry: Keep Incision Clean/Dry Stitches/Melvin/Dermabond: Dermabond, Care of Stitches Bathing Instructions: DALIA Webb DO Dec 30, 2022 07:17
[2022-12-30] MEDS ORDERED: IBUP-844 PO (07:19)
[2022-12-30] MEDS ORDERED: ACHD5005 PO (07:19)
[2022-12-30] MEDS ORDERED: DOCU100C37 PO (07:19)
[2022-12-30] MEDS ORDERED: PHENYLEPHRINE 100 MCG/ML 10 ML (ANESTHESIA) SYR ONE (07:53)
[2022-12-30] MEDS ORDERED: OXYTOCIN PRE-MIX DRIP 1,000 ML IV ONE (07:53)
[2022-12-30] MEDS: KETOROLAC 30 MG/ML VIAL IV SCH ×3 (08:55→22:23)
[2022-12-30] MEDS: OXYTOCIN PRE-MIX DRIP 500 ML IV SCH ×2 (09:40→13:52)
[2022-12-30] MEDS: DOCUSATE SODIUM 100 MG (COLACE) CAP PO SCH ×2 (09:40→22:22)
[2022-12-30] MEDS: HYDROcodone/APAP 5 MG/325 MG (LORTAB) TAB PO PRN (12:08)
[2022-12-30] MEDS ORDERED: CATHETER FLUSH 10 ML SYR IV SCH (14:00)
--- NOTE | 2022-12-30 14:04 | OPERATIVE REPORT ---
PREOPERATIVE DIAGNOSES: 1. A 27-year-old G2, P1 at 38 weeks' gestation. 2. Gestational diabetes white classification A2, on glyburide. 3. Previous section. POSTOPERATIVE DIAGNOSES: 1. A 27-year-old G2, P1 at 38 weeks' gestation. 2. Gestational diabetes white classification A2, on glyburide. 3. Previous section. PROCEDURE: Repeat low transverse section. SURGEON: Toñito Telles DO ANESTHESIA: Spinal. ESTIMATED BLOOD LOSS: 500 mL URINE OUTPUT: 200 mL, clear at the end of the procedure. FLUIDS: 1200 mL lactated Ringer's solution. FINDINGS: A live female infant weighing 9 pounds 2 ounces, Apgars of 9 and 9. Grossly normal appearing uterus, bilateral fallopian tubes and ovaries. Ovaries were enlarged with bilateral luteoma. SPECIMEN SENT: Placenta. INDICATIONS FOR PROCEDURE: This 27-year-old female patient had sought care at the [facility]. Her was complicated by gestational diabetes. She was a repeat and consulted to my office to proceed with repeat . After consultation was completed, we discussed the risk of the procedure in detail including risk of bleeding, infection, damage to surrounding structures including but not limited to bowel, bladder, ureter, kidneys, possible need for reoperation, postoperative complications that may occur, recovery timeframe, risk from anesthesia and even . After everything was discussed with the patient in detail, a consent was obtained in the preoperative area. The patient was taken to the operating room. OPERATIVE REPORT IN DETAIL: Once in the operating room, a spinal analgesia was found to be adequate, was placed in supine position with leftward tilt, prepped and draped in normal sterile fashion where anesthesia was tested. I then make a Pfannenstiel skin incision through previous existing scar using knife and carried down to underlying fascia using Bovie cautery. Fascial incision extended laterally using Bovie cautery. Superior aspect of fascial incision was then grasped with Ramya clamps, tented up and dissected off the underlying rectus muscles. The inferior aspect of the fascial incision was then grasped with Ramya clamps, tented up and dissected off the underlying rectus muscles. Rectus muscles were dissected down the midline sharply, which exposed the peritoneum, which I entered bluntly and extended using blunt traction. Raudel ring retractor was placed in the peritoneal incision, which offers excellent lateral sidewall retraction. I identified lower uterine segment was found to be thinned out and make a low transverse incision to the vesicouterine peritoneum and bluntly dissected off the lower uterine segment, creating a bladder flap. I then proceeded my myotomy until membranes were visualized, at which point I extended the uterine incision laterally and superiorly using bandage scissors. Amniotomy was performed in the process of doing this, meconium-stained was noted. The was found in vertex presentation. With gentle fundal pressure, the 's head elevated up to the incision where delivered through the incision, the nares and oropharynx were bulb suctioned. Anterior and posterior shoulders were delivered and the infant was brought to the operative field where cords were clamped and cut and was handed off to waiting nurses in attendance. Cord blood was collected. Three-vessel cord intact placenta delivered spontaneously thereafter. IV Pitocin is initiated to facilitate uterine contraction. Uterine fundus confirmed by manual massage. The uterus was exteriorized and cleared of all endometrial clots and debris. I then proceeded with closing the uterine incision using 0 Vicryl suture in a running locked fashion. Second layer of imbricating 0 Monocryl was placed. Excellent hemostasis was noted. After doing this, I then placed the uterus back in the pelvis and copiously irrigated the pelvis using normal saline. Once again, there was no active bleeding noted from any of my dissection planes. I placed Interceed antiadhesive over my low transverse incision. I removed the Raudel retractor and then proceeded with closing the peritoneum using 3-0 Vicryl suture in a running fashion. Rectus muscles were reapproximated using 3-0 Vicryl suture in interrupted fashion. The fascia was reapproximated using 0 Vicryl suture in a running fashion. The skin was then reapproximated using 4-0 Monocryl running subcuticular. Dermabond was applied to incision, sterile dressing with adhesive white tape. The patient tolerated the procedure well and was taken to recovery area in stable condition. Lap and sponge count was correct at the end of the procedure. Instrument counts correct as well. Job ID: [id number] DocumentID: [id number] Dictated Date: 12/30/2022 08:46:56 Jitterbug Operator Date: 12/30/2022 14:00:00 Dictated By: TOÑITO TELLES DO
[2022-12-31] MEDS: HYDROcodone/APAP 5 MG/325 MG (LORTAB) TAB PO PRN (00:06)
[2022-12-31 05:50] VITALS: BP 108/61
[2022-12-31] MEDS: KETOROLAC 30 MG/ML VIAL IV SCH (05:50)
[2022-12-31 05:58] LABS: BASOPHILS # (AUTO) 0.1 10^3/uL (0.0-0.1); BASOPHILS % (AUTO) 1 % (0-10); EOSINOPHILS # (AUTO) 0.4 10^3/uL (0.0-0.3); EOSINOPHILS % (AUTO) 2 % (0-10); HEMATOCRIT 33 % (35-52); LYMPHOCYTES # (AUTO) 3.6 10^3/uL (1.0-4.0); LYMPHOCYTES % (AUTO) 21 % (12-44); MEAN CORPUSCULAR HEMOGLOBIN 27 pg (25-34); MEAN CORPUSCULAR HGB CONC 31 g/dL (32-36); MEAN CORPUSCULAR VOLUME 87 fL (80-99); MEAN PLATELET VOLUME 10.9 fL (9.0-12.2); MONOCYTES # (AUTO) 1.1 10^3/uL (0.0-1.0); MONOCYTES % (AUTO) 6 % (0-12); NEUTROPHILS # (AUTO) 11.9 10^3/uL (1.8-7.8); NEUTROPHILS % (AUTO) 69 % (42-75); PLATELET COUNT 125 10^3/uL (130-400); WHITE BLOOD COUNT 17.4 10^3/uL (4.3-11.0)
--- NOTE | 2022-12-31 07:24 | Postpartum Progress Note ---
Note Note Day # 1 Subjective: Patient is without complaints. Ambulating, voiding. Tolerating a regular diet without nausea or vomiting. Normal lochia. Pain is well controlled with oral pain medications. Breast feeding. Objective: Patient is lying in bed at time of evaluation, no signs of distress. Physical Exam: General - Alert and oriented, no apparent distress Abdomen - Soft, appropriately tender to palpation, non-distended, fundus firm at umbilicus Extremities - no edema, negative Beatriz's bilaterally Incision c/d/i Assessment: POD 1 s/p RLTCS Acute blood loss anemia Plan: Routine care. Encourage breast feeding. Encourage ambulation. Ferrous sulfate supplementation. Plan for discharge tomorrow. Vitals - Labs Vital Signs - I&O Vital Signs Date Time Temp Pulse Resp B/P (MAP) Pulse Ox O2 Delivery O2 Flow Rate FiO2 12/31/22 05:50 36.4 82 18 108/61 (77) 96 Room Air 12/30/22 22:26 37.0 83 18 117/74 (88) 97 Room Air 12/30/22 16:45 37.2 88 18 104/65 (78) 98 Room Air 12/30/22 15:45 Room Air 12/30/22 12:00 36.8 83 18 112/55 (74) 97 Room Air 12/30/22 10:30 37.1 83 18 122/61 (81) 97 Room Air 12/30/22 09:30 36.9 77 18 110/63 (79) 97 Room Air 12/30/22 09:18 Room Air 12/30/22 09:10 37.0 20 122/83 (96) 97 Room Air 12/30/22 09:00 20 102/65 (77) 96 Room Air 12/30/22 09:00 37.0 20 122/83 (96) 97 Room Air 12/30/22 09:00 Room Air 12/30/22 08:48 20 100/65 (77) 96 Room Air 12/30/22 08:43 Room Air 12/30/22 08:38 20 98/66 (77) 97 Room Air 12/30/22 08:28 36.7 24 118/94 (102) 97 Room Air 12/30/22 08:28 Room Air I & O 12/31/22 07:00 Intake Total 6280 ml Output Total 3300 ml Balance 2980 ml Labs Laboratory Tests 12/31/22 05:45: White Blood Count 17.4H, Red Blood Count 3.74L, Hemoglobin 10.0L, Hematocrit 33L , Mean Corpuscular Volume 87, Mean Corpuscular Hemoglobin 27, Mean Corpuscular Hemoglobin Concent 31L, Red Cell Distribution Width 14.1, Platelet Count 125L, Mean Platelet Volume 10.9, Immature Granulocyte % (Auto) 2, Neutrophils (%) (Auto) 69, Lymphocytes (%) (Auto) 21, Monocytes (%) (Auto) 6, Eosinophils (%) (Auto) 2, Basophils (%) (Auto) 1, Neutrophils # (Auto) 11.9H, Lymphocytes # (Auto) 3.6, Monocytes # (Auto) 1.1H, Eosinophils # (Auto) 0.4H, Basophils # (Auto) 0.1, Immature Granulocyte # (Auto) 0.3H CAMI ROTHMAN Dec 31, 2022 07:24
[2022-12-31 09:38] VITALS: BP 101/56
--- NOTE | 2022-12-31 10:20 | Anesthesia-Regional Post-Op ---
Regional Patient Condition Mental Status: Alert, Oriented x3 Circulation: Same as Pre-Op Headache: Absent Sensation: Full Recovery Motor Block: Absent Post Op Complications Complications None Follow Up Care/Instructions Patient Instructions None needed. Anesthesia/Patient Condition Patient is doing well, no complaints, stable vital signs, no apparent adverse anesthesia problems. No complications reported per nursing. DIA MORAN CRNA Dec 31, 2022 10:20
[2022-12-31] MEDS: DOCUSATE SODIUM 100 MG (COLACE) CAP PO SCH ×2 (12:31→20:36)
[2022-12-31] MEDS: IBUPROFEN 600 MG (MOTRIN) TAB PO SCH ×3 (12:31→23:13)
[2022-12-31 14:22] VITALS: BP 149/82
[2022-12-31] MEDS ORDERED: SIMETHICONE 80 MG (MYLICON) CHEW ONE (17:27)
[2022-12-31] MEDS: SIMETHICONE 80 MG (MYLICON) CHEW PO SCH ×2 (17:30→23:13)
[2022-12-31 20:36] VITALS: BP 116/80
[2022-12-31] MEDS ORDERED: CALCIUM CARBONATE 500 MG (TUMS) TAB.CHEW PO PRN (23:15)
[2023-01-01 04:15] VITALS: BP 103/64
[2023-01-01] MEDS: IBUPROFEN 600 MG (MOTRIN) TAB PO SCH ×2 (04:15→10:30)
--- NOTE | 2023-01-01 09:40 | Postpartum Progress Note ---
Note Note Day # 2 Subjective: Patient is without complaints. Ambulating, voiding. Tolerating a regular diet without nausea or vomiting. Normal lochia. Pain is well controlled with oral pain medications. Physical Exam: General - Alert and oriented, no apparent distress Abdomen - Soft, appropriately tender to palpation, non-distended, fundus firm at umbilicus; incision c/d/i Extremities - no edema, negative Beatriz's bilaterally Assessment: Post- day # 1, status post RLTCS Recovering well, hemodynamically stable Acute blood loss anemia Plan: Routine care. Encourage breast feeding. Encourage ambulation. Ferrous sulfate supplementation. Plan for discharge today Vitals - Labs Vital Signs - I&O Vital Signs Date Time Temp Pulse Resp B/P (MAP) Pulse Ox O2 Delivery O2 Flow Rate FiO2 01/01/23 04:15 36.4 82 18 103/64 (77) 98 Room Air 12/31/22 20:36 36.6 82 18 116/80 (92) 98 Room Air 12/31/22 14:22 36.7 90 18 149/82 (104) 98 Room Air Labs Microbiology 12/30/22 Urine Culture - Final, Complete Mixed Bacterial Lindy See Comments 12/30/22 MRSA Screen - Final, Complete MRSA not isolated MARK FOWLER APRN Jan 01, 2023 09:40
[2023-01-01] MEDS: DOCUSATE SODIUM 100 MG (COLACE) CAP PO SCH (10:30)
[2023-01-01 10:31] VITALS: BP 111/75
== END 2023-01-01 17:10 | disposition home or self-care (01) | DRG 787 ==
LOC: LDRP 05:39
PROVIDERS: ADMIT Obstetrics & Gynecology; ATTEND Obstetrics & Gynecology
PROC: 10D00Z1 Extraction of Products of Conception, Low, Open Approach (ICD-10-PCS; principal; 2022-12-30 07:16)
DX: O34.211 Maternal care for low transverse scar from previous cesarean delivery (principal); D62 Acute posthemorrhagic anemia; Z3A.38 38 weeks gestation of pregnancy; Z37.0 Single live birth; O99.824 Streptococcus B carrier state complicating childbirth; O24.425 Gestational diabetes mellitus in childbirth, controlled by oral hypoglycemic drugs; Z79.84 Long term (current) use of oral hypoglycemic drugs; O77.0 Labor and delivery complicated by meconium in amniotic fluid; O90.81 Anemia of the puerperium
CPT/HCPCS: 36415; 80053; 81000; 85025; 86850; 86900; 86901; 87081; 87088; 94664

== ENCOUNTER 2023-01-09 16:48 | Emergency (ER) | payer MEDICAID ==
[~2023-01-09] VITALS: Ht 162 cm; Wt 80.0 kg
[~2023-01-09 16:48] MED LIST changes: +ACHD5005 PO; +DOCU100C37 PO
[2023-01-09 16:58] VITALS: BP 109/79
--- NOTE | 2023-01-09 18:18 | ED General ---
General Chief Complaint: Post OP Complications/Pain Stated Complaint: POST OP C SECTION Nursing Triage Note: PT AMB TO TRIAGE, PT STATES HAS DRAINAGE FROM AREA ON LOWER ABD. DRAINAGE IS CLEAR W SOME BLOOD NOTED. PT DENIES PAIN. INCISIONAL AREA GLUED. NO REDNESS OR PAIN Source of Information: Patient History of Present Illness Date Seen by Provider: Jan 09, 2023 Time Seen by Provider: 17:47 Initial Comments PT ARRIVES VIA POV FROM HOME PT DELIVERED ON 12/30/[address] TELLES SHE HAD ROUTINE POST /POST OP CHECK LAST WEDNESDAY SHE HAS BEEN DOING FINE, AND INCISION HAS BEEN DOING FINE, UNTIL THIS AFTERNOON AT 1617 TODAY, SHE HAD SHOWERED, CLOTHED, AND SAT DOWN, AND HAD A LARGE WET AREA ON HER CLOTHING AND NOTICED CLEAR YELLOW TO SLIGHTLY BLOOD TINGED DRAINAGE FROM THE LEFT SIDE OF HER INCISION AND CAME STRAIGHT HERE THE DRAINAGE HAS STOPPED AT THIS TIME THERE IS NO PAIN OR SWELLING OR REDNESS TO THE AREA NO FEVER NO NAUSEA/VOMITING SHE HAS NORMAL, SCANT AMOUNT OF LOCHIA SHE IS BREAST FEEDING. SHE HAD GESTATIONAL DIABETES, SHE DOES NOT CHECK HER BLOOD SUGAR. SHE DOES NOT HAVE ANY OTHER MEDICAL PROBLEMS HER NEXT APPOINTMENT WITH DR. TELLES IS FOR 6 WEEK POST CHECK. ECOLOGICAL ECONOMIST : DR. TELLES Allergies and Home Medications Allergies Coded Allergies: No Known Drug Allergies (Unverified , 12/22/22) Patient Home Medication List Home Medication List Reviewed: Yes Docusate Sodium (Docusate Sodium) 100 Mg Capsule, 100 MG PO BID PRN for CONSTIPATION-1ST LINE Prescribed by: DALIA TELLES on 12/30/22 07 Famotidine (Pepcid) 20 Mg Tablet, 20 MG PO BID, (Reported) Entered as Reported by: TAZ LANDERS on 05/17/21 1012 Hydrocodone/Acetaminophen (Hydrocodone-Acetamin 5-325 mg) 5 Mg-325 Mg Tablet, 1- 2 EA PO Q6HR PRN for PAIN-MODERATE (5-7) Prescribed by: DALIA TELLES on 12/30/22 07 Ibuprofen (Ibu) 600 Mg Tablet, 600 MG PO Q6H Prescribed by: DALIA TELLES on 12/30/22 0719 Omeprazole (Omeprazole) 10 Mg Capsule.dr 10 MG PO for HEARTBURN, (Reported) Entered as Reported by: Ana Lilia Rider on 12/22/22 1642 Vit/Iron Fumarate/FA ( Vitamins Tablet) 1 Each Tablet, 1 TAB PO DAILY, (Reported) Entered as Reported by: TAZ LANDERS on 05/17/21 1012 Review of Systems Review of Systems Constitutional: no symptoms reported Gastrointestinal: no symptoms reported Genitourinary: no symptoms reported Musculoskeletal: no symptoms reported Skin: see HPI Psychiatric/Neurological: No Symptoms Reported Past Faensoy-Eyorqc-Unkndj Hx Patient Social History Tobacco Use?: No Substance use?: No Alcohol Use?: No Pt feels they are or have been: No Immunizations Up To Date Tetanus Booster (TDap): Less than 5yrs PED Vaccines UTD: No First/Initial COVID19 Vaccinat: 05/18/21 Second COVID19 Vaccination Red: 06/27/21 Third COVID19 Vaccination Date: 05/18/21 Seasonal Allergies Seasonal Allergies: No Past Medical History Surgery/Hospitalization HX: 2ND C SECTION, Surgeries: Yes (WISDOM TEETH EXTRACTIONS) Section Respiratory: No Currently Using CPAP: No Currently Using BIPAP: No Cardiac: No Neurological: No Reproductive Disorders: Yes Female Reproductive Disorders: Polycystic Ovarian Dis Genitourinary: Yes Kidney Stones Gastrointestinal: Yes Gastroesophageal Reflux Musculoskeletal: No Endocrine: Yes (GESTATIONAL DIABETES) Diabetes, Non-Insulin dep HEENT: No Cancer: No Did You Recieve Any Treatments: No Psychosocial: No Integumentary: No Blood Disorders: No Adverse Reaction/Blood Tranf: No Physical Exam Vital Signs Vital Signs - First Documented 01/09/23 16:58 Temp 36.7 Pulse 67 Resp 16 B/P (MAP) 109/79 (89) Pulse Ox 96 Capillary Refill : Less Than 3 Seconds Height, Weight, BMI Height: 5'4.00" Weight: 183lbs. oz. 83.885772fg; 30.00 BMI Method:Stated General Appearance: No Apparent Distress, WD/WN, Other (WALKS UPRIGHT AND MOVES WITHOUT DIFFICULTY) Respiratory: Normal Breath Sounds Cardiovascular: Regular Rate, Rhythm Gastrointestinal: Non Tender, Soft, Other ( SITE, WITH SKIN GLUE PEELED OFF THE INCISION THERE IS NO SIGN OF INFECTION AND NO TENDERNESS TO THE AREA. THERE IS NO SWELLING. NO DRAINAGE NOTED AT THIS TIME. THERE ARE SEVERAL SUB CENTIMETER AREAS OF VERY SUPERFICIAL WOUND DEHISCENCE NOTED ALONG THE INCISION. ) Extremity: Normal Range of Motion Neurologic/Psychiatric: Alert, Oriented x3, No Motor/Sensory Deficits, Normal Mood/Affect, hearing stenographer II-XII Norm as Tested Skin: Normal Color, Warm/Dry, Tattoos/Piercings, Other ( ABOVE) Progress/Results/Core Measures Suspected Sepsis SIRS Temperature: Pulse: 67 Respiratory Rate: 16 Blood Pressure 109 /79 Mean: 89 Results/Orders My Orders Orders - KAYLEN BASURTO DO Wound Dressing-Ed (01/09/23 18:15) Vital Signs/I&O 01/09/23 16:58 Temp 36.7 Pulse 67 Resp 16 B/P (MAP) 109/79 (89) Pulse Ox 96 Capillary Refill : Less Than 3 Seconds Blood Pressure Mean: 89 Progress Note : Progress Note MASTISOL APPLIED TO THE AREA, THEN STERI STRIPS APPLIED, ALONG WITH AN ABD DRESSING. DISCUSSED ANTICIPATED COURSE, NEED FOR FOLLOW UP AND RETURN PRECAUTIONS REVIEWED PRIOR RECORDS, INCLUDING ER VISITS, ADMITS/DELIVERIES, H&P'S AND DISCHARGE SUMMARIES Departure Impression Primary Impression: Wound dehiscence, Disposition: HOME, SELF-CARE Condition: Stable Departure-Patient Inst. Decision time for Depature: 18:16 Referrals: NURIS CLEVELAND MD (PCP) Primary Care Physician JOSE MIKE MD (Family) Primary Care Physician DALIA TELLES DO Patient Instructions: Surgical Wound (DC) Add. Discharge Instructions: LEAVE DRESSINGS AND STERI STRIPS IN PLACE YOU MAY CHANGE OUTER DRESSING IF IT BECOMES DIRTY, WET OR SATURATED WITH DRAINAGE YOU MAY REPLACE THE OUTER DRESSING WITH A LARGE MAXI PAD CONTINUE ALL OTHER POST OP INSTRUCTIONS FOLLOW UP WITH DR. TELLES THIS WEEK FOR FURTHER CARE KAYLEN BASURTO DO Jan 09, 2023 18:18
== END 2023-01-09 18:22 | disposition home or self-care (01) ==
LOC: EDUNIT# 16:48 → ER 16:53
DX: O90.0 Disruption of cesarean delivery wound (principal)
CPT/HCPCS: 99281